=== PATIENT | male | born 1985 | race Caucasian/White ===

== ENCOUNTER 2022-03-11 09:22 | Emergency (ER) | payer MEDICAID, SELFPAY ==
--- NOTE | ~2022-03-11 | US_ITS ---
EXAMINATION: US VENOUS ULTRASOUND WITH DOPPLER LOWER EXTREMITY, BILATERAL CLINICAL INFORMATION: Bilateral leg pain and swelling. COMPARISON: None TECHNIQUE: Ultrasound of the deep veins is performed from the hip to the calf with compression sonography and color and pulse Doppler assessment. Spectral analysis with color-flow imaging is performed. FINDINGS: RIGHT: Examination demonstrates lack of compression of the right gastrocnemius vein as well as in the distal aspect of the anterior branch of the posterior tibial vein. There is otherwise normal venous compression and respiratory variation and augmented flow. The visualized common femoral vein, femoral vein, profunda femoral vein, and popliteal vein demonstrate no evidence of deep venous thrombosis. LEFT: Examination demonstrates lack of compression involving the left popliteal vein, posterior tibial veins, and peroneal veins. There is otherwise normal venous compression and respiratory variation and augmented flow. The visualized common femoral vein, femoral vein, and profunda femoral vein demonstrates no evidence of deep venous thrombosis. No Brock's cyst cyst is seen on either side. Bilateral inguinal lymph nodes are incidentally visualized, which appeared within normal limits by size criteria and demonstrate normal fatty steve. US/US venous duplex LE BI IMPRESSION: Deep venous thrombosis involving the left popliteal vein and extending to infrapopliteal veins, as above. Deep venous thrombosis involving right infrapopliteal veins, as above. Dr. Calderon was directly informed of the findings by telephone at approximately 12:50 PM on March 11, 2022.
--- NOTE | ~2022-03-11 | XR_ITS ---
EXAMINATION: XR CHEST CLINICAL INFORMATION: Pedal edema COMPARISON: Chest radiographs 05/13/2017 TECHNIQUE: 2 views of the chest were obtained. FINDINGS: The lungs are clear. The vascularity is normal. Heart size normal. The costophrenic sulci are well-defined. The hilar and mediastinal contours and bony structures are unremarkable. XR/XR chest 2V IMPRESSION: Unremarkable examination.
[2022-03-11 09:27] VITALS: BP 155/79; PULSE 79; RESP 18; TEMP 36.7; O2SAT 98; BMI 42.5
[2022-03-11 11:05] LABS: Prothrombin Time 11.5 SEC (10.0-13.1)
[2022-03-11 11:54] LABS: Appearance Urine Clear; Color Urine Yellow; Glucose Urine UA Negative (Negative); Leukocyte Esterase Urine Negative (Negative); Nitrite Urine Negative (Negative); PH 7.5 (5.0-9.0); Specific Gravity - Urine 1.015 (1.005-1.025); Urine Blood Negative (Negative); Urine Ketones Negative (Negative); Urine Protein Negative (Neg-Trace)
[2022-03-11 12:18] LABS: Basophils Percent Auto 0.4 % (0-2); Eosinophils Absolute Auto 0.2 X10*3/uL (0.0-0.4); Eosinophils Percent Auto 2.6 % (0-4); Hematocrit 38.9 % (42.0-52.0); Hemoglobin 12.9 g/dl (14.0-18.0); Imm Gran Abs Auto 0.02 X10*3/uL (0.00-0.03); Imm Gran Pct Auto 0.3 % (0.0-0.4); Lymphocytes Absolute Auto 2.2 X10*3/uL (1.2-4.9); Lymphocytes Percent Auto 30.2 % (20-40); Mean Corpuscular HGB Conc 33.2 g/dl (31.0-36.0); Mean Corpuscular Hemoglobin 27.7 pg (27.0-33.0); Mean Corpuscular Volume 83.5 fL (80.0-98.0); Mean Platelet Volume 8.8 fL (9.4-12.4); Monocytes Absolute Auto 0.6 X10*3/uL (0.1-1.2); Neutrophils Absolute Auto 4.3 x10*3/uL (2.0-8.3); Neutrophils Percent Auto 58.5 % (45-73); Platelet Count 164 X10*3/uL (160-400); Red Blood Count 4.66 X10*6/uL (4.60-5.80); Red Cell Distribution Width 13.4 % (11.0-16.0); White Blood Count 7.4 X10*3/uL (4.8-10.8)
[2022-03-11 12:27] LABS: MANUAL DIFF FLAG NO
[2022-03-11 12:35] LABS: Alanine Aminotransferase 36 U/L (0-40); Albumin Level 3.7 g/dL (3.5-5.0); Alkaline Phosphatase 76 U/L (39-117); Anion Gap 15 (12-20); Aspartate Amino Transferase 30 U/L (5-37); Bilirubin Direct 0.2 mg/dL (0.0-0.5); Bilirubin Total 0.5 mg/dL (0.0-1.0); Blood Urea Nitrogen 14 mg/dL (9-16); Calcium 8.8 mg/dL (8.4-10.2); Carbon Dioxide 24 mmol/L (22-29); Chloride 106 mmol/L (96-108); Creatinine Clr Calc Pharmacy 163.7; Estimated Glomerular Filt Rate > 60; Glucose Random 117 mg/dL (60-115); Potassium 4.1 mmol/L (3.3-5.1); Sodium 141 mmol/L (135-145); Total Protein 7.5 g/dL (6.5-8.0)
[2022-03-11 12:40] LABS: B Type Natriuretic Peptide 58 pg/mL (<100)
[2022-03-11 12:45] LABS: Partial Thromboplastin Time 33.5 SEC (26.0-36.4)
[2022-03-11 12:56] LABS: TSH reflex Free T4 0.92 uIU/mL (0.32-4.0)
[2022-03-11] MEDS: Apixaban 5 MG TABLET PO ×2 (13:13)
--- NOTE | 2022-03-11 16:11 | ED.GENADULT ---
HPI - General Adult General Chief complaint: Extremity Problem Stated complaint: Leg pain/swollen Time Seen by Provider: 03/11/22 10:00 History of Present Illness HPI narrative: Patient complains of bilateral leg swelling worse on the left over the last couple of weeks, no shortness of breath no injuries no fevers no redness, no joint swelling or joint pains, no rashes Related Data Previous Rx's Medication Instructions Recorded apixaban 5 mg (74 tabs) tablets in 5 mg PO BID #74 ea 03/11/22 a dose pack (Eliquis DVT-PE Treat 30D Start) Allergies Allergy/AdvReac Type Severity Reaction Status Date / Time sulfamethoxazole Allergy Intermediate HIVES Unverified 03/26/20 18:02 [From BACTRIM] trimethoprim [From BACTRIM] Allergy Intermediate HIVES Unverified 03/26/20 18:02 Review of Systems Review of Systems: Positive for bilateral leg swelling Negatives are no fever no chills no dizziness or weakness no fainting no feeling faint no headache neck pain no chest pain or shortness of breath no palpitations no exertional symptoms no abdominal pain no nausea or vomiting no skin rash no joint swelling Yes all other systems are reviewed and are negative PMFSH Past Medical History Source: nursing notes reviewed Social History Social History Advance Directives: No Physical Exam ED Vital Signs: Vital Signs - 24 hr 03/11/22 09:27 Temperature 98.0 F Pulse Rate 79 Respiratory Rate 18 Blood Pressure 155/79 H Pulse Oximetry 98 Oxygen Delivery Method Room Air BMI result Body Mass Index 42.5 General appearance no acute distress Head is normocephalic atraumatic Neck is supple Chest is clear to auscultation bilateral, no pleuritic discomfort Breath sounds are clear equal and normal The heart no murmur Abdomen soft nontender Extremities full range of motion x4 The leg exam both legs are mildly swollen left more than right, there is 1+ edema in both legs, there is no redness no warmth no wounds no rashes and neurovascular intact distal Skin no rash Neuro no focal deficits Course Course Course Narrative: Patient had ultrasound done of both legs which showed DVT involving left popliteal vein into in for a popliteal veins, it also showed DVT involving right infrapopliteal veins, so bilateral DVT Lab work did show low end of normal for his platelets but they were still within normal range, so Eliquis was started I texted Dr. Tompkins of Hematology who agreed by tech that she would see this patient and he should call the office The patient was discharged after 1st dose of Eliquis, he is given the coupon and a prescription and he will follow with Dr. Tompkins Medical Decision Making Lab Data Lab results reviewed: Yes I reviewed the patient's lab results. Result diagrams: 03/11/22 12:09 03/11/22 12:09 Labs: Lab Results 03/11/22 03/11/22 03/11/22 Range/Units 10:55 11:45 12:09 WBC 7.4 (4.8-10.8) X10*3/uL RBC 4.66 (4.60-5.80) X10*6/uL Hgb 12.9 L (14.0-18.0) g/dl Hct 38.9 L (42.0-52.0) % MCV 83.5 (80.0-98.0) fL MCH 27.7 (27.0-33.0) pg MCHC 33.2 (31.0-36.0) g/dl RDW 13.4 (11.0-16.0) % Plt Count 164 (160-400) X10*3/uL MPV 8.8 L (9.4-12.4) fL Immature Gran % (Auto) 0.3 (0.0-0.4) % Neut % (Auto) 58.5 (45-73) % Lymph % (Auto) 30.2 (20-40) % [place] % (Auto) 8.0 (2-11) % Eos % (Auto) 2.6 (0-4) % Baso % (Auto) 0.4 (0-2) % Lymph # (Auto) 2.2 (1.2-4.9) X10*3/uL [place] # (Auto) 0.6 (0.1-1.2) X10*3/uL Eos # (Auto) 0.2 (0.0-0.4) X10*3/uL Baso # (Auto) 0.0 (0.0-0.2) X10*3/uL Abs Immat Gran (auto) 0.02 (0.00-0.03) X10*3/uL Absolute Neuts (auto) 4.3 (2.0-8.3) x10*3/uL Absolute Nucleated RBC 0.000 (0.0-0.012) X10*3/uL Nucleated RBC % (auto) 0.0 (0.0-0.2) /100WBC PT 11.5 (10.0-13.1) SEC INR 1.0 (0.9-1.1) APTT 33.5 (26.0-36.4) SEC Sodium (135-145) mmol/L Potassium (3.3-5.1) mmol/L Chloride (96-108) mmol/L Carbon Dioxide (22-29) mmol/L Anion Gap (12-20) BUN (9-16) mg/dL Creatinine (0.5-1.4) mg/dL Estim Creat Clear Calc Estimated GFR Random Glucose (60-115) mg/dL Calcium (8.4-10.2) mg/dL Total Bilirubin (0.0-1.0) mg/dL Direct Bilirubin (0.0-0.5) mg/dL AST (5-37) U/L ALT (0-40) U/L Alkaline Phosphatase (39-117) U/L B-Natriuretic Peptide (<100) pg/mL Total Protein (6.5-8.0) g/dL Albumin (3.5-5.0) g/dL TSH (0.32-4.0) uIU/mL Urine Color Yellow Urine Appearance Clear Urine pH 7.5 (5.0-9.0) Ur Specific [place] 1.015 (1.005-1.025) Urine Protein Negative (Neg-Trace) mg/dL Urine Glucose (UA) Negative (Negative) mg/dL Urine Ketones Negative (Negative) mg/dL Urine Blood Negative (Negative) Urine Nitrite Negative (Negative) Ur Leukocyte Esterase Negative (Negative) 03/11/22 03/11/22 Range/Units 12:09 12:09 WBC (4.8-10.8) X10*3/uL RBC (4.60-5.80) X10*6/uL Hgb (14.0-18.0) g/dl Hct (42.0-52.0) % MCV (80.0-98.0) fL MCH (27.0-33.0) pg MCHC (31.0-36.0) g/dl RDW (11.0-16.0) % Plt Count (160-400) X10*3/uL MPV (9.4-12.4) fL Immature Gran % (Auto) (0.0-0.4) % Neut % (Auto) (45-73) % Lymph % (Auto) (20-40) % [place] % (Auto) (2-11) % Eos % (Auto) (0-4) % Baso % (Auto) (0-2) % Lymph # (Auto) (1.2-4.9) X10*3/uL [place] # (Auto) (0.1-1.2) X10*3/uL Eos # (Auto) (0.0-0.4) X10*3/uL Baso # (Auto) (0.0-0.2) X10*3/uL Abs Immat Gran (auto) (0.00-0.03) X10*3/uL Absolute Neuts (auto) (2.0-8.3) x10*3/uL Absolute Nucleated RBC (0.0-0.012) X10*3/uL Nucleated RBC % (auto) (0.0-0.2) /100WBC PT (10.0-13.1) SEC INR (0.9-1.1) APTT (26.0-36.4) SEC Sodium 141 (135-145) mmol/L Potassium 4.1 (3.3-5.1) mmol/L Chloride 106 (96-108) mmol/L Carbon Dioxide 24 (22-29) mmol/L Anion Gap 15 (12-20) BUN 14 (9-16) mg/dL Creatinine 0.81 (0.5-1.4) mg/dL Estim Creat Clear Calc 163.7 Estimated GFR > 60 Random Glucose 117 H (60-115) mg/dL Calcium 8.8 (8.4-10.2) mg/dL Total Bilirubin 0.5 (0.0-1.0) mg/dL Direct Bilirubin 0.2 (0.0-0.5) mg/dL AST 30 (5-37) U/L ALT 36 (0-40) U/L Alkaline Phosphatase 76 (39-117) U/L B-Natriuretic Peptide 58 (<100) pg/mL Total Protein 7.5 (6.5-8.0) g/dL Albumin 3.7 (3.5-5.0) g/dL TSH 0.92 (0.32-4.0) uIU/mL Urine Color Urine Appearance Urine pH (5.0-9.0) Ur Specific [place] (1.005-1.025) Urine Protein (Neg-Trace) mg/dL Urine Glucose (UA) (Negative) mg/dL Urine Ketones (Negative) mg/dL Urine Blood (Negative) Urine Nitrite (Negative) Ur Leukocyte Esterase (Negative) Discharge Plan Discharge Clinical Impression: Deep vein thrombosis of lower extremity Patient Disposition: Home, Self-Care Additional Instructions: Our workup today showed deep vein clot in the left leg, as well as other clots in both lower legs You will need to take a blood thinner to prevent the clots from going to her lungs or getting worse If you develop any chest pain or difficulty breathing or pain with a deep breath return to the ER to be checked for clots that go to lungs When you follow-up with your doctor next week make sure you let them know you are taking Eliquis for blood clots, bring the papers I gave you Your platelets are normal but at the low end of normal, so your doctor may want a recheck that as you need platelets for your blood clot Return to the ER any time any worse condition or any concerns Prescriptions: New Eliquis DVT-PE Treat 30D Start 5 mg (74 tabs) tablets,dose pack 5 mg PO BID Qty: 74 0RF Rx Instructions: Take 2 tablets twice a day, 10 mg twice a day for 1st 7 days, then after 7 days take 1 tablet twice a day morning and night, 5 mg 1 tablet twice a day Referrals: Shima Tompkins MD [Physician] - (New finding of a bilateral lower leg clots and left-sided DVT) Stand Alone Forms: Work/School Release Interventions: ED Discharge Assessment Last Done: 03/11/22 13:21 Discharge Date/Time: 03/11/22 13:22
== END 2022-03-11 13:22 | disposition home or self-care (01) ==
PROVIDERS: Physician Assistant Medical; Emergency Provider Emergency Medicine; PCP Nurse Practitioner Family
DX: I82.432 Acute embolism and thrombosis of left popliteal vein (principal); M79.662 Pain in left lower leg; R60.0 Localized edema; R06.02 Shortness of breath; Z79.899 Other long term (current) drug therapy
CPT/HCPCS: 36415; 71046; 80048; 80076; 81003; 83880; 84443; 85025; 85610; 85730; 93970; 99283; 99284

== ENCOUNTER → 2022-05-17 13:49 | Outpatient (BNV) | payer MEDICAID, SELFPAY | PROVIDERS: Visit Provider Internal Medicine | DX: I82.403 Acute embolism and thrombosis of unspecified deep veins of lower extremity, bilateral (principal) | CPT/HCPCS: 99204; 99213 ==

== ENCOUNTER 2022-06-08 08:29 | Outpatient (REF) | payer MEDICAID, SELFPAY ==
--- NOTE | ~2022-06-08 | US_ITS ---
EXAMINATION: US VENOUS ULTRASOUND WITH DOPPLER LOWER EXTREMITY, BILATERAL CLINICAL INFORMATION: Follow-up DVT COMPARISON: Previous exam March 2022 TECHNIQUE: Ultrasound of the deep veins is performed from the hip to the calf with compression sonography and color and pulse Doppler assessment. Spectral analysis with color-flow imaging is performed. FINDINGS: RIGHT: There is normal venous compression and respiratory variation and augmented flow. The visualized common femoral vein, superficial femoral vein, profunda femoral vein, popliteal vein, and the trifurcation region are patent. There is old-appearing thrombus seen in the right gastrocnemius vein in the proximal calf with hypoechoic and hyperechoic hyperechoic material against the wall. There is improved flow in the right gastrocnemius vein compared to March 2022. There is no significant popliteal fossa cyst. LEFT: There is normal venous compression and respiratory variation and augmented flow. The visualized common femoral vein, superficial femoral vein, profunda femoral vein, popliteal vein, and the trifurcation region shows no evidence of deep venous thrombosis. The left popliteal posterior tibial and peroneal veins demonstrate normal compression and flow. There is no significant popliteal fossa cyst. US/US venous duplex LE BI IMPRESSION: Right: No acute DVT. Old-appearing thrombus in the right gastrocnemius vein which appears improved or decreased compared to 03/11/2022 exam. Left: No evidence of DVT.
== END 2022-06-08 08:30 | disposition home or self-care (01) ==
LOC: HO.HMGCX 08:29
PROVIDERS: PCP Nurse Practitioner Family; Visit Provider Internal Medicine
DX: I82.409 Acute embolism and thrombosis of unspecified deep veins of unspecified lower extremity (principal)
CPT/HCPCS: 93970

== ENCOUNTER → 2023-03-08 12:55 | Outpatient (BNVA) | payer MEDICAID, SELFPAY | PROVIDERS: PCP Nurse Practitioner Family; Visit Provider Physician Assistant ==

== ENCOUNTER 2023-03-22 08:21 | Outpatient (AMB) | payer MEDICAID, SELFPAY ==
--- NOTE | 2023-03-22 12:51 | A.OFFVIS_ITS ---
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 Allergies sulfamethoxazole [From BACTRIM] Allergy (Intermediate, Verified 03/22/23 12:54) HIVES trimethoprim [From BACTRIM] Allergy (Intermediate, Verified 03/22/23 12:54) HIVES Medication List - Last Reconciled 03/22/23 by Mc Nieto MD apixaban (Eliquis) 5 mg PO BID methadone 110 mg PO DAILY HPI [employer] SWL BMI 40.3 HPI Details Start time: 12.48pm, End time: 1.36pm ?I spent 43 minutes speaking with the patient on the phone plus an additional 5 minutes reviewing and updating records for a total of 48 minutes HPI Comments History of Present Illness Details Previous weight loss efforts: Weight Watchers Wakes up: 7am, sleeps: 9pm Breakfast: 8am premade Equate protein shake, or eggs Lunch: 1pm (ham and cheese wrap and fruits) Dinner: 6pm (steak or chicken with broccoli) Snacks: 3pm (rice cakes), wakes up at 11pm-12am (cereal or milk) Exercise: has a Gym membership, could get a treadmill Fluids: Coffee: none, tea: none, soda: diet Pepsi, juice: crystal lights, ETOH: none PFSH Medical History (Updated 03/22/23 @ 13:00 by Mc Nieto MD) Anxiety Depression History of opioid abuse Morbid obesity History of DVT (deep vein thrombosis) Family History Maternal Grandfather Myocardial infarction Family/Other Leukemia Social History (Updated 03/20/23 @ 14:39 by Gisela Martinez) Household Members: Spouse and Children Housing: Condominium Are you a primary home health care case manager to a significant other at home: No Do you presently have visiting nurse or other home services: No Patient Tobacco Use Status: Current everyday Tobacco user Tobacco use type: Cigarette Cigarette Packs Per Day: 1 e-Cigarette/Vaping Use: Never Used Substance Use Type: Marijuana service: No Current occupational status: employed Assessment & Plan Assessment & Plan (1) Morbid obesity: Code(s): E66.01 - Morbid (severe) obesity due to excess calories Plan: 1.? Plan for lap sleeve gastrectomy. If diaphragmatic or ventral hernias are present at time of surgery, these will be repaired laparoscopically as well. Risks and complications were discussed in detail including possible conversion to an open procedure, anastomotic leak, bleeding requiring transfusion, small bowel obstruction, , DVT and pulmonary embolism, cardiac, or pulmonary complications, as intermediate accountant complications such as anastomotic ulcer, insufficient weight loss and vitamin deficiencies. I emphasized the importance of close follow-up, adherence to instructions and good communication. 2. Nutritional counseling. Start with 2 Celebrate REBUILD protein (buy at the hospital's gift shop, or online) shakes (ONE scoop each in 8oz almond milk) at 8am-10am and 11am-1pm, 1 Celebrate protein bar (buy at the [facility], or online) at 2pm-4pm, dinner at 5pm (10 forks of protein and 10 forks of salad/vegetables) AND ONE more protein bar after dinner at 7pm-9pm. If you wake up in the middle of the night and you feel hungry, please do another protein bar. Meal to include lean meat (beef, fish, pork, turkey, chicken), or romanian yogurt, or egg whites, or beans with a salad with olive oil and fruits (berries, pears, apples, kiwi). Avoid salt, breads, potatoes, rice, pasta, desserts. 3. Each shake would be drunk slowly, like coffee in a period of 2 hours. 4. Cut each bar in 4 pieces and eat each piece in 30min ?to make each bar last 2 hours. 5. I emphasized the importance of measuring accurately the food portion and measure it when serving the food in plate 6. The meal portions include 10 full-size forks of meat and 10 full-size forks of salad. You always eat the meat portion but you can replace up to 5 forks for salad/vegetables with rice, potatoes or pasta, or a fruit ?if you like. The less you do it the better weight loss will be. 7. One full-size fork is what it can be scooped on the fork without falling aside and not what can be bit with the fork. Use regular forks like those you find in a typical restaurant. 8.? Please send me weight measurements as soon as possible and then once a week. Always include your diet and exercise plan. 9. Start treadmill with an incline of 2.0 and speed of 3.0. Increase incline by 1 every 3 min to a max incline of 8.0, stay 3min at 8.0 and then return to 2.0 and repeat same steps until calorie goal is met. Goal is to burn 2000 calories per week on exercise, which means either 300 calories daily, or 400 calories 5 days per week, or 500 calories 4 days per week, or 650 calories 3 days per week. 10.?Goal is to lose at least 1.5-2lbs per week 11. Goal to lose 10% of your weight before surgery, which is about 26lbs. Ultimate weight goal: 238lbs before surgery 12. Please follow the diet plan exactly without any change. If you don't like something about the plan or you feel hungry you need to communicate with me so I can help you revise the plan. You should not change the plan yourself. (2) DVT (deep venous thrombosis): Code(s): I82.409 - Acute embolism and thrombosis of unspecified deep veins of unspecified lower extremity Orders: Orders Insulin Today E66.01 - Morbid (severe) obesity due to excess calories, I82.409 - Acute embolism and thrombosis of unspecified deep veins of unspecified lower extremity IRON PROFILE Today E66.01 - Morbid (severe) obesity due to excess calories, I82.409 - Acute embolism and thrombosis of unspecified deep veins of unspecified lower extremity Vitamin B12 and Folate Today E66.01 - Morbid (severe) obesity due to excess calories, I82.409 - Acute embolism and thrombosis of unspecified deep veins of unspecified lower extremity Zinc Today E66.01 - Morbid (severe) obesity due to excess calories, I82.409 - Acute embolism and thrombosis of unspecified deep veins of unspecified lower extremity Comprehensive Met. Panel Today E66.01 - Morbid (severe) obesity due to excess calories, I82.409 - Acute embolism and thrombosis of unspecified deep veins of unspecified lower extremity Vitamin B1 Today E66.01 - Morbid (severe) obesity due to excess calories, I82.409 - Acute embolism and thrombosis of unspecified deep veins of unspecified lower extremity Vitamin A Today E66.01 - Morbid (severe) obesity due to excess calories, I82.409 - Acute embolism and thrombosis of unspecified deep veins of unspecified lower extremity Ferritin Today E66.01 - Morbid (severe) obesity due to excess calories, I82.409 - Acute embolism and thrombosis of unspecified deep veins of unspecified lower extremity PTHI Today E66.01 - Morbid (severe) obesity due to excess calories, I82.409 - Acute embolism and thrombosis of unspecified deep veins of unspecified lower extremity H Pylori Breath Test Today E66.01 - Morbid (severe) obesity due to excess calories, I82.409 - Acute embolism and thrombosis of unspecified deep veins of unspecified lower extremity Vitamin D 25-OH Total Today E66.01 - Morbid (severe) obesity due to excess calories, I82.409 - Acute embolism and thrombosis of unspecified deep veins of unspecified lower extremity Hemoglobin A1c Today E66.01 - Morbid (severe) obesity due to excess calories, I82.409 - Acute embolism and thrombosis of unspecified deep veins of unspecified lower extremity ECG 12 lead EKG Today E66.01 - Morbid (severe) obesity due to excess calories, I82.409 - Acute embolism and thrombosis of unspecified deep veins of unspecified lower extremity Lipid Panel Today E66.01 - Morbid (severe) obesity due to excess calories, I82.409 - Acute embolism and thrombosis of unspecified deep veins of unspecified lower extremity Complete Blood Count Auto Diff Today E66.01 - Morbid (severe) obesity due to excess calories, I82.409 - Acute embolism and thrombosis of unspecified deep veins of unspecified lower extremity C Reactive Protein Today E66.01 - Morbid (severe) obesity due to excess calories, I82.409 - Acute embolism and thrombosis of unspecified deep veins of unspecified lower extremity TSH reflex Free T4 Today E66.01 - Morbid (severe) obesity due to excess calories, I82.409 - Acute embolism and thrombosis of unspecified deep veins of unspecified lower extremity US abdomen comp w elastography Today E66.01 - Morbid (severe) obesity due to excess calories, I82.409 - Acute embolism and thrombosis of unspecified deep veins of unspecified lower extremity XR chest 2V Today E66.01 - Morbid (severe) obesity due to excess calories, I82.409 - Acute embolism and thrombosis of unspecified deep veins of unspecified lower extremity FL upper GI w air Today E66.01 - Morbid (severe) obesity due to excess calories, I82.409 - Acute embolism and thrombosis of unspecified deep veins of unspecified lower extremity Referrals Behavioral Health Referral E66.01 - Morbid (severe) obesity due to excess calories, I82.409 - Acute embolism and thrombosis of unspecified deep veins of unspecified lower extremity Nutrition/Dietitian Referral E66.01 - Morbid (severe) obesity due to excess calories, I82.409 - Acute embolism and thrombosis of unspecified deep veins of unspecified lower extremity Telehealth Telehealth Location of provider rendering services: practice address Location of patient: address on file Patient Identification confirmed using: Name, : Yes Telehealth method: voice only Patient verbally consented to treatment: Yes Patient verbally consented to billing insurance company: Yes Patient informed of any privacy concerns related to visit: Yes Minutes spent on Phone/Video with Pt.: 48 Coding Level of Care Code Tele [facility] Pt Level 4 (31074) Diagnoses Morbid obesity E66.01 DVT (deep venous thrombosis) I82.409 Time Spent (min) 48
[2023-03-22 13:11] VITALS: BMI 40.2
== END 2023-03-22 13:40 | disposition home or self-care (01) ==
LOC: HO.HBS 08:22
PROVIDERS: PCP Nurse Practitioner Family; Visit Provider Surgery
DX: E66.01 Morbid (severe) obesity due to excess calories (principal); Z68.41 Body mass index [BMI] 40.0-44.9, adult
CPT/HCPCS: 99204

== ENCOUNTER → 2023-03-22 08:21 | Outpatient (BNVA) | payer MEDICAID, SELFPAY | PROVIDERS: PCP Nurse Practitioner Family; Visit Provider Surgery ==

== ENCOUNTER 2023-04-05 09:40 | Outpatient (REF) | payer MEDICAID, SELFPAY ==
--- NOTE | ~2023-04-05 | XR_ITS ---
EXAMINATION: XR CHEST CLINICAL INFORMATION: Morbid obesity COMPARISON: 03/11/2022 TECHNIQUE: 2 views of the chest were obtained. FINDINGS: No significant abnormality is noted involving the heart, lungs, mediastinum, bony thorax or soft tissues. XR/XR chest 2V IMPRESSION: Unremarkable examination, without interval change.
--- NOTE | 2023-04-05 09:46 | ECG_ITS ---
Test Reason : morbid obesity Blood Pressure : / mmHG Vent. Rate : 080 BPM Atrial Rate : 080 BPM P-R Int : 180 ms QRS Dur : 094 ms QT Int : 378 ms P-R-T Axes : 023 001 000 degrees QTc Int : 435 ms Normal sinus rhythm Possible Inferior infarct , age undetermined Abnormal ECG When compared with ECG of 02-DEC-2014 15:56, No significant change was found Referred By: Mc Nieto Electronically Signed By:ADI MCKAY
[2023-04-05 10:11] LABS: MANUAL DIFF FLAG NO
[2023-04-05 10:18] LABS: Basophils Percent Auto 0.3 % (0-2); Eosinophils Absolute Auto 0.1 X10*3/uL (0.0-0.4); Hematocrit 43.6 % (42.0-52.0); Hemoglobin 14.4 g/dl (14.0-18.0); Imm Gran Abs Auto 0.01 X10*3/uL (0.00-0.03); Imm Gran Pct Auto 0.1 % (0.0-0.4); Lymphocytes Absolute Auto 1.8 X10*3/uL (1.2-4.9); Lymphocytes Percent Auto 25.7 % (20-40); Mean Corpuscular Hemoglobin 27.7 pg (27.0-33.0); Mean Corpuscular Volume 83.8 fL (80.0-98.0); Mean Platelet Volume 8.9 fL (9.4-12.4); Monocytes Absolute Auto 0.5 X10*3/uL (0.1-1.2); Monocytes Percent Auto 6.6 % (2-11); Neutrophils Absolute Auto 4.7 x10*3/uL (2.0-8.3); Neutrophils Percent Auto 66.3 % (45-73); Platelet Count 238 X10*3/uL (160-400); Red Cell Distribution Width 13.2 % (11.0-16.0); White Blood Count 7.1 X10*3/uL (4.8-10.8)
[2023-04-05 10:54] LABS: Alanine Aminotransferase 36 U/L (0-40); Albumin Level 4.3 g/dL (3.5-5.0); Alkaline Phosphatase 70 U/L (39-117); Anion Gap 12 (12-20); Aspartate Amino Transferase 32 U/L (5-37); Bilirubin Total 0.6 mg/dL (0.0-1.0); Blood Urea Nitrogen 20 mg/dL (9-16); C Reactive Protein 1.45 mg/dL (< or = 0.50); Calcium 9.7 mg/dL (8.4-10.2); Carbon Dioxide 26 mmol/L (22-29); Chloride 105 mmol/L (96-108); Cholesterol 156 mg/dL (<200); Estimated Glomerular Filt Rate > 60; Glucose Random 100 mg/dL (60-115); HDL Cholesterol 25 mg/dL (>40); Iron 65 mcg/dL (45-160); LDL Cholesterol Calculated 105 mg/dL (<100); Percent Iron Saturation 20 % (15-50); Potassium 4.2 mmol/L (3.3-5.1); Sodium 139 mmol/L (135-145); Total Iron Binding Capacity 326 mcg/dL (228-428); Total Protein 8.5 g/dL (6.5-8.0); Triglycerides 133 mg/dL (<150); Unsaturated Iron Binding 261 ug/dL
[2023-04-05 11:16] LABS: Ferritin 104 ng/mL (20-250); Insulin 11 uU/mL (2-29); TSH reflex Free T4 0.61 uIU/mL (0.32-4.0); Vitamin D 25-OH Total 39.4 ng/mL (>30)
[2023-04-05 11:20] LABS: Vitamin B12 988 pg/mL (200-900)
[2023-04-05 11:59] LABS: Estimated Average Glucose 111 mg/dL; Hemoglobin A1c % 5.5 % (<6.0)
[2023-04-06 16:19] LABS: Calcium (PTHI) 9.5 mg/dL (8.6-10.3); PTHI 28 pg/mL (16-77)
[2023-04-08 22:44] LABS: Zinc 88 mcg/dL (60-130)
[2023-04-09 14:57] LABS: Vitamin B1 28 nmol/L (8-30)
[2023-04-11 04:58] LABS: Vitamin A 37 mcg/dL (38-98)
== END 2023-04-05 09:41 | disposition home or self-care (01) ==
LOC: HO.XRAY 09:40
PROVIDERS: Visit Provider Surgery
DX: E66.01 Morbid (severe) obesity due to excess calories (principal); I82.409 Acute embolism and thrombosis of unspecified deep veins of unspecified lower extremity
CPT/HCPCS: 36415; 71046; 80053; 80061; 82306; 82607; 82728; 82746; 83036; 83525; 83540; 83970; 84425; 84443; 84590; 84630; 85025; 86140; 93005

== ENCOUNTER 2023-04-06 14:09 | Outpatient (AMB) | payer MEDICAID, SELFPAY ==
--- NOTE | 2023-04-06 14:10 | A.OFFWM_ITS ---
Intake Intake Visit Reasons: VIDEO Intake Allergies sulfamethoxazole [From BACTRIM] Allergy (Intermediate, Verified 03/22/23 12:54) HIVES trimethoprim [From BACTRIM] Allergy (Intermediate, Verified 03/22/23 12:54) HIVES [facility] Medical History (Updated 04/06/23 @ 12:57 by Mc Nieto MD) Anxiety Depression History of opioid abuse Morbid obesity History of DVT (deep vein thrombosis) Family History Maternal Grandfather Myocardial infarction Family/Other Leukemia Social History (Updated 03/20/23 @ 14:39 by Gisela Martinez) Household Members: Spouse and Children Housing: Condominium Are you a primary critical care specialist to a significant other at home: No Do you presently have visiting nurse or other home services: No Patient Tobacco Use Status: Current everyday Tobacco user Tobacco use type: Cigarette Cigarette Packs Per Day: 1 e-Cigarette/Vaping Use: Never Used Substance Use Type: Marijuana service: No Current occupational status: employed Behavioral Health Assessment Weight Management Therapy Therapy Notes Details Pt is a 37 dee old male who presents for BH assessment as part of SWL program. Pt is interested in bariatric surgery with the goal to reach his healthy weight and have a healthier life style. Pt disclosed history of Bipolar Dx (mostly depressive episodes), anxiety, substance use in the past and trauma. He has been in recovery 4 years ago and currently receives methadone treatment, also will start seeing a therapist soon at his PCP's office. Pt disclosed past hospitalization in 2012 due to severe depression but denies ever had suicidal ideation/plan/attempts and/or self/other-harm concerns. Some signs of emotional eating were identified ad BES scores suggest moderate risk for binge eating behavior. We will meet again in 4 weeks to finish assessment, monitor BH functioning and adjustment to program. Presenting Concerns Referral Source P Provider. Pt sees Dr Kerr Reason for referral Completion of behavioral health assessment as part of process for weight-loss surgery. Precipitating Event Morbid obesity. Living Situation Current Living Situation Rent At risk of losing current housing? No Satisfied with current living situation? Yes Comments Pt lives with his fiance. Food/Weight/Diet Expectations of change Goal to lose 10% of his weight before surgery, which is about 26lbs. Ultimate weight goal: 238lbs before surgery. Pt wants to be at a healthy weight and is unsure about a number. History/Relationship with food Sometimes will reward himself with food. . Example of meals before starting the program Breakfast: Skip most of the time Lunch: @2pm a sandwich or cereal/milk. Dinner: @6-8pm Big meal. (Steak/pork/chicken, bake potatoes, corn/carrots, pasta, salads) Usually big portions and multiple carbs per meal. Icecream at 11pm. Pm Eating: @12/1am cereal/milk, PBG sandwich and milk. History/Relationship with weight Normal weight until about age 12. HAs been overweight since hitting [employer]. in past 10 years Lowest weight was 189Lbs, and highest 296Lbs. History/Relationship with dieting Weight watchers, protein shakes, keto (for 1 week only). Exercise routine. Binge Eating Do you frequently eat large amounts of food in short periods of time, not feeling physically hungry? Yes Do you feel out of control when you eat a large amount of food in a short period of time? Yes Do you eat large amounts of food rapidly and typically alone? Yes Night Eating Do you wake up at least once during the night to eat? Yes If you wake up in the night, do you find that it is necessary to eat something in order to fall back asleep? No Do you have little or no appetite in the morning and feel very hungry in the evening, often overeating between dinner and when you go to bed? Yes Social History Family history and relationship PT is engaged for over a year. Has a sister, they recently reconnected. Mother alive, step dad passed. No relationship with bio-father. 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 Developmental history and status None reported. Social support Fianc? who had bariatric surgery, mother, friend. 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 Religious/Spirituality [employer]. Cultural/Ethnic information Mixed /. Legal Involvement and History Current or historical involvement with the legal system? 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 No Financial Situation Describe current financial situation Comfortable Financial assistance? Food [employer]? No Mental Health and Addiction Treatment Current/Past substance abuse? Yes Comments Hx of Opioids/Heroine use, has been in recovery for 4 years. Current/Past addictive behavior concerns? No Psychiatric history -Was in therapy for several years at [facility] . -Will be starting therapy soon at his PC P office. - Diagnosed with Bipolar disorder (has h ad depressive episodes and per is statements possible manic ones) and anxiety - Was hospitalized in 2013 due to severe depression. - Denies ever had suicidal ideation/plan /attempts, also denies self/other-harm. Medical and Physical Health Summary Additional Medical History not covered in history None Sexual History concerns None Physical exam in the last year? Yes Pain Screening Current pain? No Pain in the last few months? Yes Comments Knee pain. Medications Is the patient compliant with medications? Yes Does the patient have [place] Guardian in place? Not applicable Does the patient use complimentary health approaches? Yes (Started practicing yoga and meditation every morning.) Trauma/Abuse History History of trauma? Yes Questionnaires PHQ-9 Over the last 2 weeks, how often have you been bothered by any of the following problems? 1. Little interest or pleasure in doing things: more than half the days 2. Feeling down, depressed, or hopeless: several days 3. Trouble falling or staying asleep, or sleeping too much: not at all 4. Feeling tired or having little energy: several days 5. Poor appetite or overeating: several days 6. Feeling bad about yourself - or that you are a failure or have let yourself or your family down: several days 7. Trouble concentrating on things, such as reading the newspaper or watching television: not at all 8. Moving or speaking so slowly that other people could have noticed. Or the opposite - being so fidgety or restless that you have been moving around a lot more than usual: several days 9. Thoughts that you would be better off or of hurting yourself in some way: not at all Total score: 7 Depression Screening Interpretation: Negative 17706 - PHQ-9 Billing: Yes Source: Developed by Drs. William Lowe, Pretty Pate, Yonatan Marcial and colleagues, with an educational slim from [employer]. Binge Eating Scale Group 1 A. I don't feel self-conscious about my wt. or body size when I'm with others. B. I feel concerned about how I look to others, but it normally does not make me fell disappointed with myself C. I do get self-conscious about my appearance and wt. which makes me feel disappointed in myself. D. I feel very self-conscious about my wt. and frequently I feel intense shame and disgust for myself. I try to avoid social contacts because of my self- consciousness. Response Group 1: C Group 2 A. I don't have any difficulty eating slowly in the proper manner. B. Although I seem to gobble down foods, I don't end up feeling stuffed because of eating to much. C. At times, I tend to eat quickly and then, I feel uncomfortably full afterwards. D. I have the habit of bolting down my food, without really chewing it. When this happens I usually feel uncomfortably stuffed because I've eaten to much. Response Group 2: C Group 3 A. I feel capable to control my eating urges when I want to. B. I feel like I have failed to control my eating more than the average person. C. I feel utterly helpless when it comes to feeling in control of my eating urges. D. Because I feel so helpless about controlling my eating I have become very desperate about trying to get control. Response Group 3: B Group 4 A. I don't have the habit of eating when I'm bored. B. I sometimes eat when I'm bored, but often I'm able to get busy and get my mind off food. C. I have a regular habit of eating when I'm bored, but occasionally, I can use some other activity to get my mind off eating. D. I have a strong habit of eating when I'm bored. Nothing seems to help me breath the habit. Response Group 4: C Group 5 A. I'm usually physically hungry when I eat something. B. Occasionally, I eat something on impulse even though I really am not hungry. C. I have the regular habit of eating foods, that I might not really enjoy, to satisfy a hungry feeling even though physically, I don't need the food. D. Although I'm not physically hungry, I get a hungry feeling in my mouth that only seems to be satisfied when I eat a food, like sandwich, that fills my mouth. Sometimes, when I eat the food to satisfy my mouth hunger, I then spit the food out so I won't gain weight. Response Group 5: B Group 6 A. I don't feel any guilt or self-hate after I overeat. B. After I overeat, occasionally I feel guilt or self-hate. C. Almost all the time I experience strong guilt or self-hate after I overeat. Response Group 6: B Group 7 A. I don't lose total control of my eating when dieting even after periods when I overeat. B. Sometimes when I eat a forbidden food on a diet, I feel like I blew it and eat even more. C. Frequently, I have the habit of saying to myself, I've blown it now, why not go all the way, when I overeat on a diet. When that happens I eat more. D. I have a regular habit of starting a strict diets for myself but I break the diets by going on an eating binge. My life seems to be either a feast or famine. Response Group 7: B Group 8 A. I rarely eat so much food that I feel uncomfortably stuffed afterwards. B. Usually about once a month, I each such a quantity of food, I end up feeling very stuffed. C. I have regular periods during the month when I eat large amounts of food, either at mealtime or at snacks. D. I eat so much food that I regularly feel quite uncomfortable after eating and sometimes a bit nauseous. Response Group 8: C Group 9 A. My level of calorie intake does not go up very high or go down very low on a regular basis. B. Sometimes after I overeat, I will try to reduce my caloric intake to almost nothing to compensate for the excess calories I've eaten. C. I have a regular habit of overeating during the night. It seems that my routine is not to be hungry in the morning but overeat in the evening. D. In my adult years, I have had week-long periods where I practically starve myself. This follows periods when I overeat. It seems I live a life of either feast or famine. Response Group 9: A Group 10 A. I usually am able to stop eating when I want to. I know when enough is enough. B. Every so often, I experience a compulsion to eat which I can't seem to control. C. Frequently, I experience strong urges to eat which I seem unable to control, but at other times I can control my eating urges. D. I feel incapable of controlling urges to eat. I have a fear of not being able to stop eating voluntarily. Response Group 10: C Group 11 A. I don't have any problem stopping eating when I feel full. B. I usually can stop eating when I feel full but occasionally overeat leaving me feeling uncomfortably stuffed. C. I have a problem stopping eating once I start and usually I feel uncomfortably stuffed after I eat a meal. D. Because I have a problem not being able to stop eating when I want, I sometimes have to induce vomiting to relieve my stuffed feeling. Response Group 11: B Group 12 A. I seem to eat just as much when I'm with others, Family social gatherings as when I'm by myself. B. Sometimes, when I'm with other persons, I don't eat as much as I want to eat because I'm self-conscious about my eating. C. Frequently, I eat only a small amount of food when others are present, because I'm very embarrassed about my eating. D. I feel so ashamed about overeating that I pick times to overeat when I know no one will see me. I feel like a closet eater. Response Group 12: A Group 13 A. I eat three meals a day with only an occasional between meal snack. B. I eat 3 meals a day, but I also normally snack between meals. C. When I am snacking heavily, I get in the habit of skipping regular meals. D. There are regular periods when I seem to be continually eating, with no planned meals. Response Group 13: C Group 14 A. I don't think much about trying to control unwanted eating urges. B. At least some of the time, I feel my thoughts are pre-occupied with trying to control my eating urges. C. I feel that frequently I spend much time thinking about how much I ate or about trying not to eat anymore. D. It seems to me that most of my waking hours are pre-occupied by thoughts about eating or not eating. I feel like I'm constantly struggling not to eat. Response Group 14: B Group 15 A. I don't think about food a great deal. B. I have strong craving for food but they last only for brief periods of time. C. I have days when I can't seem to think about anything else but food. D. Most of my days seem to be pre-occupied with thoughts about food. I feel like I live to eat. Response Group 15: C Group 16 A. I usually know whether or not I'm physically hungry. I take the right portion of food to satisfy me. B. Occasionally, I feel uncertain about knowing whether or not I'm physically hungry. A these times it's hard to know how much food I should take to satisfy me. C. Even though I might know how many calories I should eat, I don't have any idea what is a normal amount of food for me. Response Group 16: C Binge Eating Score: 22 Score less than 17 Minimal Risk Score between 18-26 Moderate Risk Score between 27-46 High Risk Assessment & Plan Assessment & Plan (1) Anxiety: Code(s): F41.9 - Anxiety disorder, unspecified (2) Mood disorder: Code(s): F39 - Unspecified mood [affective] disorder (3) History of substance use disorder: Code(s): Z87.898 - Personal history of other specified conditions Plan Not cleared today. Will f/up in 4 weeks. Next yao: 05/03/2023 @11am - Telehealth Telehealth Telehealth Location of provider rendering services: practice address Location of patient: other ([place], [place]) Patient Identification confirmed using: Name, : Yes Telehealth method: video Patient verbally consented to treatment: Yes Patient verbally consented to billing insurance company: Yes Patient informed of any privacy concerns related to visit: Yes Minutes spent on Phone/Video with Pt.: 60 Coding Level of Care Code New Pt Tele Psy Diag Eval (27214) Patient Type New Diagnoses Anxiety F41.9 Mood disorder F39 History of substance use disorder Z87.898 Time Spent (min) 60
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
== END 2023-04-12 15:29 | disposition home or self-care (01) ==
LOC: HO.HBST 14:09
PROVIDERS: PCP Nurse Practitioner Family; Visit Provider Counselor Mental Health
DX: F41.9 Anxiety disorder, unspecified (principal); F39 Unspecified mood [affective] disorder; Z87.898 Personal history of other specified conditions
CPT/HCPCS: 90791

== ENCOUNTER → 2023-04-06 14:09 | Outpatient (BNVA) | payer MEDICAID, SELFPAY | PROVIDERS: PCP Nurse Practitioner Family; Visit Provider Counselor Mental Health | DX: F41.9 Anxiety disorder, unspecified (principal); F39 Unspecified mood [affective] disorder; Z87.898 Personal history of other specified conditions | CPT/HCPCS: 90791 ==

== ENCOUNTER → 2023-04-12 13:11 | Outpatient (BNVA) | payer MEDICAID, SELFPAY | PROVIDERS: PCP Nurse Practitioner Family; Visit Provider Physician Assistant Surgical | DX: Z11.0 Encounter for screening for intestinal infectious diseases (principal) | CPT/HCPCS: 99211 ==

== ENCOUNTER 2023-04-12 13:57 | Outpatient (REF) | payer MEDICAID, SELFPAY | END 2023-04-12 13:58 | disposition home or self-care (01) | LOC: HO.LNP 13:57 | PROVIDERS: Visit Provider Surgery | DX: Z11.0 Encounter for screening for intestinal infectious diseases (principal) | CPT/HCPCS: 83013 ==

== ENCOUNTER 2023-04-21 10:33 | Outpatient (AMB) | payer MEDICAID, SELFPAY ==
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
--- NOTE | 2023-04-21 11:34 | MHC.OFFVISWM ---
Intake VS Expanded 04/21/23 11:47 Height 5 ft 8 in Weight 259 lb 8 oz BMI 39.5 Body Fat % 41.1 Body Fat Mass 106.7 Fat Free Mass 153 Body Water % 41.9 Body Water Mass 108.8 Intake Visit Reasons: TV Follow Up SWL - Allergies sulfamethoxazole [From BACTRIM] Allergy (Intermediate, Verified 03/22/23 12:54) HIVES trimethoprim [From BACTRIM] Allergy (Intermediate, Verified 03/22/23 12:54) HIVES HPI TV Follow Up SWL - HPI Details Start time: 11.33am, End time: 11.56am ?I spent 18 minutes speaking with the patient on the phone plus an additional 5 minutes reviewing and updating records for a total of 23 minutes HPI Comments History of Present Illness Details Overall weight loss: 5lbs, or 1.89% TBWL Off smoking for over 2 months now Is doing 2 Celebrate REBUILD protein shakes (1 scoop in 8oz almond milk), 2-3 Celebrate protein bars and one meal (10 forks of protein and 10 forks of salad or vegetables) Exercise: is doing treadmill at home at 3 days per week doing twice per day burning a minimum of 500 calories PFSH Medical History (Updated 04/21/23 @ 11:51 by Mc Nieto MD) Anxiety Depression History of opioid abuse Morbid obesity History of DVT (deep vein thrombosis) Family History Maternal Grandfather Myocardial infarction Family/Other Leukemia Social History (Updated 03/20/23 @ 14:39 by Gisela Martinez) Household Members: Spouse and Children Housing: Condominium Are you a primary care director rn to a significant other at home: No Do you presently have visiting nurse or other home services: No Patient Tobacco Use Status: Current everyday Tobacco user Tobacco use type: Cigarette Cigarette Packs Per Day: 1 e-Cigarette/Vaping Use: Never Used Substance Use Type: Marijuana service: No Current occupational status: employed Assessment & Plan Assessment & Plan (1) Obesity: Code(s): E66.9 - Obesity, unspecified Plan: 1. Please change the nutritional plan to 2 Celebrate REBUILD protein shakes (1 scoop in 8oz almond milk) and 2 Celebrate protein bars BEFORE DINNER, dinner at 5pm-6pm (10 forks of protein and 10 forks of salad or vegetables) AND one more Celebrate protein bar after dinner at 7pm-9pm 2. Exercise: continue treadmill at home but increase to 4 days per week doing two workouts per day burning a minimum of 500 calories in total. Goal is to burn 2000 calories per week collectively on the treadmill. 3. Continue to send me weight measurements weekly on (2) BMI 39.0-39.9,adult: Code(s): Z68.39 - Body mass index [BMI] 39.0-39.9, adult Telehealth Telehealth Location of provider rendering services: practice address Location of patient: address on file Patient Identification confirmed using: Name, : Yes Telehealth method: voice only Patient verbally consented to treatment: Yes Patient verbally consented to billing insurance company: Yes Patient informed of any privacy concerns related to visit: Yes Minutes spent on Phone/Video with Pt.: 23 Coding Level of Care Code Tele Est Pt Level 3 (04515) Diagnoses Obesity E66.9 BMI 39.0-39.9,adult Z68.39 Time Spent (min) 23
[2023-04-21 11:47] VITALS: BMI 39.5
== END 2023-04-21 11:56 | disposition home or self-care (01) ==
LOC: HO.HBS 10:33
PROVIDERS: PCP Nurse Practitioner Family; Visit Provider Surgery
DX: E66.9 Obesity, unspecified (principal); Z68.39 Body mass index [BMI] 39.0-39.9, adult
CPT/HCPCS: 99213

== ENCOUNTER → 2023-04-21 10:33 | Outpatient (BNVA) | payer MEDICAID, SELFPAY | PROVIDERS: PCP Nurse Practitioner Family; Visit Provider Surgery ==

== ENCOUNTER → 2023-04-28 13:40 | Outpatient (BNVA) | payer MEDICAID, SELFPAY | PROVIDERS: PCP Nurse Practitioner; Visit Provider Dietitian, Registered | DX: E66.01 Morbid (severe) obesity due to excess calories (principal); F17.210 Nicotine dependence, cigarettes, uncomplicated | CPT/HCPCS: 97802 ==

== ENCOUNTER 2023-05-19 08:33 | Outpatient (AMB) | payer MEDICAID, SELFPAY ==
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
--- NOTE | 2023-05-19 12:36 | A.OFFVIS_ITS ---
Intake VS Expanded 05/19/23 12:44 Height 5 ft 8 in Weight 254 lb 5 oz BMI 38.7 Body Fat % 39.1 Body Fat Mass 99.5 Fat Free Mass 154.9 Body Water % 42.9 Body Water Mass 109.1 Intake Visit Reasons: TV Follow Up SWL Allergies sulfamethoxazole [From BACTRIM] Allergy (Intermediate, Verified 03/22/23 12:54) HIVES trimethoprim [From BACTRIM] Allergy (Intermediate, Verified 03/22/23 12:54) HIVES HPI TV Follow Up SWL HPI Details Start time: 12.30pm, End time: 12.51pm ?I spent 16 minutes speaking with the patient on the phone plus an additional 5 minutes reviewing and updating records for a total of 21 minutes HPI Comments History of Present Illness Details Overall weight loss: 10.3lbs, or 3.89% TBWL Is doing 2 Celebrate Rebuild shakes (1 scoop each in 8oz almond milk), 3-4 Celebrate protein bars and one meal (10 forks of protein and 10 forks of salad or vegetables) Exercise: doing home treadmill twice per day for 1000 calories, at least 4-6 days per week PFSH Medical History (Updated 05/19/23 @ 12:48 by Mc Nieto MD) Anxiety Depression History of opioid abuse Morbid obesity History of DVT (deep vein thrombosis) Family History Maternal Grandfather Myocardial infarction Family/Other Leukemia Social History (Updated 03/20/23 @ 14:39 by Gisela Martinez) Household Members: Spouse and Children [facility] Are you a primary primary care nurse to a significant other at home: No Do you presently have visiting nurse or other home services: No Patient Tobacco Use Status: Current everyday Tobacco user Tobacco use type: Cigarette Cigarette Packs Per Day: 1 e-Cigarette/Vaping Use: Never Used Substance Use Type: Marijuana service: No Current occupational status: employed Assessment & Plan Assessment & Plan (1) Obesity: Code(s): E66.9 - Obesity, unspecified Plan: 1. Change nutritional plan to 2 Celebrate Rebuild shakes (HALF scoop each in 8oz almond milk), 3-4 Celebrate protein bars and one meal (10 forks of protein and 10 forks of salad or vegetables) 2. Exercise: continue home treadmill twice per day for 1000 calories, at least 4-6 days per week 3. Continue to send me weight measurements weekly on (2) BMI 38.0-38.9,adult: Code(s): Z68.38 - Body mass index [BMI] 38.0-38.9, adult Telehealth Telehealth Location of provider rendering services: practice address Location of patient: address on file Patient Identification confirmed using: Name, : Yes Telehealth method: voice only Patient verbally consented to treatment: Yes Patient verbally consented to billing insurance company: Yes Patient informed of any privacy concerns related to visit: Yes Minutes spent on Phone/Video with Pt.: 21 Coding Level of Care Code Tele Est Pt Level 3 (02127) Diagnoses Obesity E66.9 BMI 38.0-38.9,adult Z68.38 Time Spent (min) 21
[2023-05-19 12:44] VITALS: BMI 38.7
== END 2023-05-19 12:52 | disposition home or self-care (01) ==
LOC: HO.HBS 08:33
PROVIDERS: PCP Nurse Practitioner; Visit Provider Surgery
DX: E66.9 Obesity, unspecified (principal); Z68.38 Body mass index [BMI] 38.0-38.9, adult
CPT/HCPCS: 99213

== ENCOUNTER → 2023-05-19 08:33 | Outpatient (BNVA) | payer MEDICAID, SELFPAY | PROVIDERS: PCP Nurse Practitioner; Visit Provider Surgery ==

== ENCOUNTER 2023-05-24 13:39 | Outpatient (AMB) | payer OTHER, SELFPAY ==
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
== END 2023-05-24 14:09 | disposition home or self-care (01) ==
PROVIDERS: PCP Nurse Practitioner; Visit Provider Counselor Mental Health
DX: F39 Unspecified mood [affective] disorder (principal); F41.9 Anxiety disorder, unspecified; Z86.59 Personal history of other mental and behavioral disorders
CPT/HCPCS: 90834

== ENCOUNTER → 2023-05-24 13:39 | Outpatient (BNVA) | payer MEDICAID, SELFPAY | PROVIDERS: PCP Nurse Practitioner; Visit Provider Counselor Mental Health ==

== ENCOUNTER 2023-06-16 08:06 | Outpatient (AMB) | payer MEDICAID, SELFPAY ==
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
--- NOTE | 2023-06-16 12:01 | A.OFFVIS_ITS ---
Intake VS Expanded 06/16/23 12:06 Height 5 ft 8 in Weight 248 lb 9 oz BMI 37.8 Body Fat % 38.2 Body Fat Mass 95 Fat Free Mass 153.8 Body Water % 41.5 Body Water Mass 103.2 Intake Visit Reasons: TV Follow Up SWL Allergies sulfamethoxazole [From BACTRIM] Allergy (Intermediate, Verified 03/22/23 12:54) HIVES trimethoprim [From BACTRIM] Allergy (Intermediate, Verified 03/22/23 12:54) HIVES HPI TV Follow Up SWL HPI Details Start time: 12pm, End time: 12.11pm ?I spent 6 minutes speaking with the patient on the phone plus an additional 5 minutes reviewing and updating records for a total of 11 minutes HPI Comments History of Present Illness Details Overall weight loss: 15.9lbs, or 6% TBWL Is doing 2 Celebrate Rebuild shakes (HALF scoop in 8oz almond milk), 2 Celebrate protein bars and one meal (10 forks of protein and 10 forks of salad or vegetables) Exercise: is doing treadmill 5 days per week for 1000 calories per day PFSH Medical History (Updated 06/16/23 @ 12:11 by Mc Nieto MD) Anxiety Depression History of opioid abuse Morbid obesity History of DVT (deep vein thrombosis) Family History Maternal Grandfather Myocardial infarction Family/Other Leukemia Social History (Updated 03/20/23 @ 14:39 by Gisela Martinez) Household Members: Spouse and Children [facility] Are you a primary home health caregiver to a significant other at home: No Do you presently have visiting nurse or other home services: No Patient Tobacco Use Status: Current everyday Tobacco user Tobacco use type: Cigarette Cigarette Packs Per Day: 1 e-Cigarette/Vaping Use: Never Used Substance Use Type: Marijuana service: No Current occupational status: employed Assessment & Plan Assessment & Plan (1) Obesity: Code(s): E66.9 - Obesity, unspecified Qualifiers: Obesity type: due to excess calories Obesity classification: adult class 2 (BMI 35 - 39.9) Serious obesity comorbidity presence: with serious comorbidity Body mass index: BMI 38.0-38.9 Qualified Code(s): E66.01 - Morbid (severe) obesity due to excess calories; Z68.38 - Body mass index [BMI] 38.0- 38.9, adult Plan: 1. Continue same nutritional plan of 2 Celebrate Rebuild shakes (HALF scoop in 8oz almond milk), 2 Celebrate protein bars and one meal (10 forks of protein and 10 forks of salad or vegetables) 2. Exercise: continue treadmill 5 days per week for 1000 calories per day 3. Continue to send me weight measurements weekly on Telehealth Telehealth Location of provider rendering services: practice address Location of patient: address on file Patient Identification confirmed using: Name, : Yes Telehealth method: voice only Patient verbally consented to treatment: Yes Patient verbally consented to billing insurance company: Yes Patient informed of any privacy concerns related to visit: Yes Minutes spent on Phone/Video with Pt.: 11 Coding Level of Care Code Tele Est Pt Level 2 (20053) Diagnoses Class 2 severe obesity due to excess calories with serious comorbidity and body mass index (BMI) of 38.0 to 38.9 in adult E66.01; Z68.38 Obesity type: due to excess calories Obesity classification: adult class 2 (BMI 35 - 39.9) Serious obesity comorbidity presence: with serious comorbidity Body mass index: BMI 38.0-38.9 Time Spent (min) 11
[2023-06-16 12:06] VITALS: BMI 37.8
== END 2023-06-16 12:12 | disposition home or self-care (01) ==
LOC: HO.HBS 08:06
PROVIDERS: PCP Nurse Practitioner; Visit Provider Surgery
DX: E66.01 Morbid (severe) obesity due to excess calories (principal); Z68.38 Body mass index [BMI] 38.0-38.9, adult
CPT/HCPCS: 99212

== ENCOUNTER → 2023-06-16 08:06 | Outpatient (BNVA) | payer MEDICAID, SELFPAY | PROVIDERS: PCP Nurse Practitioner; Visit Provider Surgery ==

== ENCOUNTER 2023-07-14 08:01 | Outpatient (AMB) | payer MEDICAID, SELFPAY ==
[2023-07-14 12:54] VITALS: BMI 37.5
--- NOTE | 2023-07-14 12:54 | A.OFFVIS_ITS ---
Intake VS Expanded 07/14/23 12:54 Height 5 ft 8 in Weight 246 lb 8 oz BMI 37.5 Body Fat % 37.9 Body Fat Mass 93.5 Fat Free Mass 153.2 Body Water % 41.1 Body Water Mass 101.4 Intake Visit Reasons: TV Follow Up SWL Allergies sulfamethoxazole [From BACTRIM] Allergy (Intermediate, Verified 03/22/23 12:54) HIVES trimethoprim [From BACTRIM] Allergy (Intermediate, Verified 03/22/23 12:54) HIVES HPI TV Follow Up SWL HPI Details Start time: 11.25am, End time: 11.40am ?I spent 10 minutes speaking with the patient on the phone plus an additional 5 minutes reviewing and updating records for a total of 15 minutes HPI Comments History of Present Illness Details Overall weight loss: 18lbs, or 6.8% TBWL [facility] Medical History (Updated 06/16/23 @ 12:11 by Mc Nieto MD) Anxiety Depression History of opioid abuse Morbid obesity History of DVT (deep vein thrombosis) Family History Maternal Grandfather Myocardial infarction Family/Other Leukemia Social History (Updated 03/20/23 @ 14:39 by Gisela Martinez) Household Members: Spouse and Children Housing: Condominium Are you a primary nanny caregiver to a significant other at home: No Do you presently have visiting nurse or other home services: No Patient Tobacco Use Status: Current everyday Tobacco user Tobacco use type: Cigarette Cigarette Packs Per Day: 1 e-Cigarette/Vaping Use: Never Used Substance Use Type: Marijuana service: No Current occupational status: employed Assessment & Plan Assessment & Plan (1) Obesity: Code(s): E66.9 - Obesity, unspecified Qualifiers: Obesity type: due to excess calories Obesity classification: adult class 2 (BMI 35 - 39.9) Serious obesity comorbidity presence: with serious comorbidity Body mass index: BMI 38.0-38.9 Qualified Code(s): E66.01 - Morbid (severe) obesity due to excess calories; Z68.38 - Body mass index [BMI] 38.0- 38.9, adult Plan: 1. Needs to reschedule the echo and stress test 2. We discussed upcoming tests and dates 3. Needs to send me weight measurements jane Telehealth Telehealth Location of provider rendering services: practice address Location of patient: address on file Patient Identification confirmed using: Name, : Yes Telehealth method: voice only Patient verbally consented to treatment: Yes Patient verbally consented to billing insurance company: Yes Patient informed of any privacy concerns related to visit: Yes Minutes spent on Phone/Video with Pt.: 15 Coding Level of Care Code Tele Est Pt Level 2 (95461) Diagnoses Class 2 severe obesity due to excess calories with serious comorbidity and body mass index (BMI) of 38.0 to 38.9 in adult E66.01; Z68.38 Obesity type: due to excess calories Obesity classification: adult class 2 (BMI 35 - 39.9) Serious obesity comorbidity presence: with serious comorbidity Body mass index: BMI 38.0-38.9 Time Spent (min) 15
== END 2023-07-14 12:59 | disposition home or self-care (01) ==
LOC: HO.HBS 08:01
PROVIDERS: PCP Nurse Practitioner; Visit Provider Surgery
DX: E66.01 Morbid (severe) obesity due to excess calories (principal); Z68.38 Body mass index [BMI] 38.0-38.9, adult
CPT/HCPCS: 99212

== ENCOUNTER → 2023-07-14 08:01 | Outpatient (BNVA) | payer MEDICAID, SELFPAY | PROVIDERS: PCP Nurse Practitioner; Visit Provider Surgery ==

== ENCOUNTER → 2023-08-02 09:09 | Outpatient (BNV) | payer MEDICAID, SELFPAY | PROVIDERS: PCP Nurse Practitioner; Visit Provider Nurse Practitioner | DX: R94.31 Abnormal electrocardiogram [ECG] [EKG] (principal) | CPT/HCPCS: 93016; 93018; 93306 ==

== ENCOUNTER → 2023-08-02 09:09 | Outpatient (REF) | payer MEDICAID, SELFPAY ==
--- NOTE | 2023-08-02 09:09 | CA_ITS ---
Transthoracic Echocardiogram Patient (Last, First, Middle): Pio Sims, Gender: Male Date of : 1985 Age: 37 Procedure Date: 08/02/2023 Procedure Type: Transthoracic Echocardiogram Location: OP Height: 172.72 cm Weight: 115.67 kg BSA: 2.27 m2 Heart Rate: bpm BP: 130 / 90 mmHg Helicopter Crew Chief: TO Referring MD: Mc Nieto MD Hopper Feeder: Chin Matias MD Symptoms: R94.31 - Abnormal electrocardiogram [ECG] [EKG] Study Quality: Technically Difficult/No IV Access ECG Rhythm: Sinus Conclusions: - 1. Normal LV ejection fraction of 60 65% 2. Normal cardiac valvular Doppler 3. No gross pericardial effusion Findings Left Ventricle Normal left ventricular size, thickness, and systolic function. The visually estimated ejection fraction is between 60-65%. Regional wall motion abnormalities can not be excluded due to suboptimal endocardial definition. Spectral Doppler is indicative of a normal filling pattern. Right Ventricle Normal right ventricular cavity size. Atria The left atrium is normal in size. Interatrial shunt cannot be excluded. The right atrium was not well visualized. Aortic Valve Normal aortic valve structure and function. There is no aortic valve stenosis. There is no aortic valve regurgitation. Mitral Valve Normal mitral valve structure and function. There is trace mitral valve regurgitation. There is no mitral valve stenosis. Pulmonic Valve The pulmonic valve was not well visualized. Tricuspid Valve The tricuspid valve was not well visualized. Tricuspid regurgitation envelope is inadequate for calculation of right ventricular systolic pressure. Normal right atrial pressure. Great Vessels All visible segments of the aorta are normal in size. The pulmonary artery was not well visualized. There is no dilatation of the ascending aorta measuring 3.00 cm. Venous The inferior vena cava is normal in size and collapses greater than 50% with inspiration. Pericardium/Pleural There is no evidence of pericardial effusion. Prior Study Comparison No prior study available for comparison. Measurements 2D Linear Measurements IVSd: 1.07 0.6-0.9/0.6-1.0 cm LVIDd: 4.55 3.9-5.3/4.2-5.9 cm LVIDd Index: 2.00 2.4-3.2/2.2-3.1 cm/m2 LVIDs: 2.45 2.0-3.6 cm LVPWd: 0.83 0.7-1.1 cm LA Diam: 3.80 2.7-3.8/3.0-4.0 cm LAIDs Index: 1.67 1.5-2.3 cm/m2 LV Mass: 181.11 67-162/88-224 g LV Mass Index: 79.78 43-95/49-115 g/m2 LVOT Diam: 2.10 3.0+(-)1.3 cm Mitral Valve MV Pk E: 0.79 MV PK A: 0.45 MV Decel Time: 235.00 E/A: 1.80 E'Lateral: 13.40 E'Medial: 10.70 E/E' Med: 7.40 E/E' Lat: 5.90 PHT: 69.00 MVA PHT: 3.19 Decel Cassia: 3.37 Aortic Valve AoV Pk Avinash: 1.10 AoV Mn Avinash: 0.77 AoV VTI: 0.24 AoV Pk Grad: 5.00 Aov Mn Grad: 3.00 DIANA Cont.VTI: 2.70 LVOT LVOT Pk Avinash: 0.86 LVOT Mn Avinash: 0.59 LVOT VTI: 0.19 LVOT Pk Grad: 3.00 LVOT Mn Grad: 2.00 LVOT Diam: 2.10 LVOT Area: 3.46 Diastolic Function MV Pk E: 0.79 MV Pk A: 0.45 E/A: 1.80 E'Medial: 10.70 E/E' Med: 7.40 E' Laterial: 13.40 E/E' Lat: 5.90 Right Ventricle TAPSE (mm): 27.60 TVS' Avinash: 16.00 Tricuspid Valve RA Press: 3.00 Great Vessels Aorta Sinus of Valsalva: 3.61 2.0-3.[address] Ridge: 2.50 1.7-3.4 cm Ao Asc: 3.00 2.1-3.4 cm Updated in Other Vendor System with Status of Final Chin Matias MD electronically signed on 08/02/2023 4:26:55 PM with status of Final
--- NOTE | 2023-08-02 09:09 | CA_ITS ---
Acquisition Time: 2023-08-02 10:24:10 Total Exercise Time: 00:07:52 Test Indications: ABN EKG, PREOP Medications: SEE H Protocol: JULISA Max HR: 160 BPM 87% of Pred: 183 BPM Max BP: 170/070 mmHG Max Work Load: 9.5 METS Exercise stress test exercise 7 min 52 sec of Julisa protocol achieving 87% MPHR & 9.5 METs, with mild to moderate SOB, without chest discomfort, without arrhythmias, with normotensive response to exercise, without EKG changes. Test reviewed with Dr. Pierre. Referred By: Mc Nieto Overread By: Anna Saha
== END ==
LOC: HO.CARD 09:09
PROVIDERS: PCP Nurse Practitioner; Visit Provider Surgery
DX: R94.31 Abnormal electrocardiogram [ECG] [EKG] (principal)
CPT/HCPCS: 93017; 93306

== ENCOUNTER 2023-08-04 09:08 | Outpatient (REF) | payer MEDICAID, SELFPAY ==
--- NOTE | ~2023-08-04 | FL_ITS ---
EXAMINATION: XR FLUOROSCOPY UPPER GI WITH AIR CLINICAL INFORMATION: Preop evaluation prior to bariatric surgery COMPARISON: None TECHNIQUE: Fluoroscopic air contrast upper GI examination was performed utilizing standard techniques with thin and thick barium and effervescent granules. Numerous spot images were obtained. FINDINGS: Lateral cine images of the oropharynx and hypopharynx demonstrate normal swallow mechanism with normal epiglottic inversion and soft palate elevation. No tracheal penetration, glottic or subglottic aspiration identified. No nasopharyngeal reflux present. Hypopharyngeal structures appear normal without evidence of mass or diverticulum. There was no significant cricopharyngeal achalasia. Dual and single contrast images of the esophagus demonstrate normal caliber, contour, and mucosal pattern. No evidence of stricture, mass, or ulcerations identified. Esophageal peristalsis was normal. No evidence of hiatus hernia identified. Gastroesophageal reflux is seen up to the thoracic inlet. Dual contrast and single contrast images of the stomach demonstrated normal contour. There are a few tiny areas of contrast pooling in the fundus of the stomach that may represent small superficial ulcers. No evidence of mass or other abnormality is present. Contrast freely passed into the gastric antrum and duodenal bulb without delay. Single and air-contrast images of the duodenal bulb demonstrate no abnormality. The duodenal sweep has a normal appearance, course, and mucosal fold appearance. No malrotation. The imaged proximal jejunum has a normal fold pattern and caliber. FLUOROSCOPY TIME: 2 minutes 47 seconds Number of Spot Images: 15 Number of Cine: 7 DOSE AREA PRODUCT: 2690 uGy-m2 (microgray-meter squared) FL/FL upper GI w air IMPRESSION: 1. Significant gastroesophageal reflux. 2. Few tiny foci of contrast pooling in the fundus the stomach that may represent small mucosal ulcers. Recommend correlation with EGD. This procedure was performed by Miguel Ángel Cunningham PA-C, and supervised by Dr. Saha
== END 2023-08-04 09:09 | disposition home or self-care (01) ==
LOC: HO.XRAY 09:08
PROVIDERS: PCP Nurse Practitioner; Visit Provider Surgery
DX: E66.01 Morbid (severe) obesity due to excess calories (principal)
CPT/HCPCS: 74246

== ENCOUNTER → 2023-08-04 09:09 | Outpatient (BNV) | payer MEDICAID, SELFPAY | PROVIDERS: PCP Nurse Practitioner; Visit Provider Radiology Diagnostic Radiology | DX: Z01.818 Encounter for other preprocedural examination (principal) | CPT/HCPCS: 74246 ==

== ENCOUNTER 2023-08-10 10:22 | Outpatient (REF) | payer MEDICAID, SELFPAY ==
--- NOTE | ~2023-08-10 | US_ITS ---
EXAMINATION: US COMPLETE ABDOMEN WITH LIVER ELASTOGRAPHY CLINICAL INFORMATION: Morbid obesity. COMPARISON: None available. TECHNIQUE: Real-time imaging of the abdominal viscera. Noninvasive ultrasound liver fibrosis assessment is performed using Flako ElastPQ point quantification shear wave elastography (2D-SWE) with a C5-2 MHz transducer. Multiple elastography samples are obtained. FINDINGS: PANCREAS: Normal. The visualized pancreatic head and body are normal in appearance. The remainder of the pancreas is obscured from visualization by the overlying bowel gas. ABDOMINAL AORTA: The proximal, middle, and distal aortic segments are normal in caliber. INFERIOR VENA CAVA: Visualized portions are normal. LIVER: There is borderline hepatomegaly. The liver demonstrates normal contour and increased echogenicity. No focal lesion or intrahepatic biliary duct dilatation. The right lobe measures 17.0 cm in length. The left lobe measures 10.3 cm in length. Portal flow is towards the liver (hepatopetal). Shear wave liver elastography median stiffness is 1.92 m/s (reference: normal median stiffness is 1.3 m/s or less). IQR/median stiffness to assess sampling precision is 0.10 (reference: good quality data set is IQR/median stiffness of 0.15 or less). GALLBLADDER: Normal. The gallbladder is physiologically distended without evidence of stones, sludge, polyps, wall thickening or pericholecystic fluid. COMMON BILE DUCT: Normal in caliber measuring 0.4 cm in diameter. RIGHT KIDNEY: Normal. No hydronephrosis. No renal calculi or focal parenchymal lesions. The kidney measures 10.2 cm in maximum dimension. LEFT KIDNEY: At the upper pole laterally, a 1.3 cm benign, simple cyst is seen, for which no imaging follow-up is recommended. No hydronephrosis. No renal calculi or focal parenchymal lesions. The kidney measures 10.8 cm in maximum dimension. SPLEEN: Normal. The spleen measures 12.7 cm in maximum dimension. FREE FLUID: None. US/US abdomen comp w elastography IMPRESSION: 1. There is borderline hepatomegaly. 2. There is generalized increase in hepatic echotexture, consistent with fatty infiltration or hepatocellular disease. Please correlate clinically. No focal hepatic mass or intrahepatic biliary dilatation is seen. 3. Liver elastography: Measurements are suggestive of compensated advanced chronic liver disease but need further test for confirmation. REFERENCE: Society of Radiologists in Ultrasound Liver Stiffness Thresholds (2020): LIVER STIFFNESS THRESHOLDS: *Liver Stiffness equal or less than 1.3 m/s: High probability of being normal. *Liver Stiffness less than 1.7 m/s: In the absence of other known clinical signs, rules out compensated advanced chronic liver disease. *Liver Stiffness 1.7-2.1 m/s: Suggestive of compensated advanced chronic liver disease but need further test for confirmation. *Liver Stiffness over 2.1 m/s: Rules in compensated advanced chronic liver disease. *Liver Stiffness over 2.4 m/s: Suggestive of clinically significant portal hypertension. QUALITY OF DATA SET: *IQR/Median value equal or less than 0.15 implies a quality data set. *IQR/Median value over 0.15 implies a poor quality data set. SIGNIFICANT CHANGE FROM PRIOR EXAM: Significant change if liver stiffness measurement is 10% or greater from prior exam. OTHER CONSIDERATIONS: The stage of liver fibrosis may be overestimated in the setting of acute hepatitis, liver inflammation, elevated liver function tests, hepatic vascular congestion, obstructive cholestasis, non-fasting state, and infiltrative diseases such as amyloidosis and lymphoma. In some patients with NAFLD, the liver stiffness thresholds for compensated advanced chronic liver disease may be lower. In causes other than viral hepatitis and NAFLD, liver stiffness thresholds are not well established.
== END 2023-08-10 10:23 | disposition home or self-care (01) ==
LOC: HO.US 10:22
PROVIDERS: PCP Nurse Practitioner; Visit Provider Surgery
DX: E66.01 Morbid (severe) obesity due to excess calories (principal); Z86.718 Personal history of other venous thrombosis and embolism
CPT/HCPCS: 76700; 76981

== ENCOUNTER 2023-09-11 08:43 | Outpatient (AMB) | payer MEDICAID, SELFPAY ==
--- NOTE | 2023-09-10 14:02 | MHC.OFFVISWM ---
Intake VS Expanded 09/10/23 14:03 09/11/23 15:19 Height 5 ft 8 in 5 ft 8 in Weight 242 lb 3 oz 241 lb 7 oz BMI 36.8 36.7 Body Fat % 37.1 40.1 Body Fat Mass 89.8 96.9 Fat Free Mass 152.4 144.7 Body Water % 40.9 40.3 Body Water Mass 99.1 97.4 Intake Visit Reasons: TV Pre Op LSG 09/19/23 Allergies sulfamethoxazole [From BACTRIM] Allergy (Intermediate, Verified 03/22/23 12:54) HIVES trimethoprim [From BACTRIM] Allergy (Intermediate, Verified 03/22/23 12:54) HIVES Medication List - Last Reconciled 09/11/23 by Mc Nieto MD fondaparinux 2.5 mg (0.5 mL) subcut Q24H methadone 110 mg PO DAILY ondansetron 4 mg PO Q12H pantoprazole 40 mg PO DAILY polyethylene glycol 3350 (Miralax) 17 grams PO DAILY sucralfate 10 mL PO BID HPI TV Pre Op LSG 09/19/23 HPI Details Start time: 2.51pm, End time: 3.21pm ?I spent 15 minutes speaking with the patient on the phone plus an additional 15 minutes reviewing and updating records for a total of 30 minutes HPI Comments History of Present Illness Details Overall weight loss: 22.5lbs, or 8.5% TBWL Is doing 2 Celebrate Rebuild shakes (HALF scoop in 8oz almond milk), 2 Celebrate protein bars and one meal (10 forks of protein and 10 forks of salad or vegetables) Exercise: is doing treadmill 5 days per week for 1000 calories per day [facility] Medical History (Updated 06/16/23 @ 12:11 by Mc Nieto MD) Anxiety Depression History of opioid abuse Morbid obesity History of DVT (deep vein thrombosis) Family History Maternal Grandfather Myocardial infarction Family/Other Leukemia Social History (Updated 03/20/23 @ 14:39 by Gisela Martinez) Household Members: Spouse and Children Housing: Condominium Are you a primary rn primary care to a significant other at home: No Do you presently have visiting nurse or other home services: No Patient Tobacco Use Status: Current everyday Tobacco user Tobacco use type: Cigarette Cigarette Packs Per Day: 1 e-Cigarette/Vaping Use: Never Used Substance Use Type: Marijuana service: No Current occupational status: employed Physical Exam Vital Signs: BMI result Body Mass Index 36.8 Assessment & Plan Assessment & Plan (1) Morbid obesity: Code(s): E66.01 - Morbid (severe) obesity due to excess calories Plan: 1. Plan for lap sleeve gastrectomy including upper GI endoscopy. All tests has been completed and reviewed and the patient is cleared for the surgery. ?If diaphragmatic or ventral hernias are present at time of surgery, these will be repaired laparoscopically as well. 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 I emphasized the importance of close follow-up, adherence to instructions and good communication. So far he has proven to be an excellent communicator and very compliant with all our directions accomplishing a great weight loss. I believe that he is an excellent candidate and he is ready. 2. Preop prescriptions were provided and explained the purpose of each one. Need to be purchased preop. Start Pantoprazole now as you get it from the pharmacy, 1 pill per day. Sucralfate and Zofran are for after surgery as needed. 3. Bowel prep: please do 7 packets ?of Miralax mixing each one with a an 8oz glass of water, crystal light, gatorade zero, or propel ?on 09/17/23 and the same amount on 09/18/23. The Miralax you begin with one packet at a time in 8oz water or crystal light, gatorade zero, or propel ?as early in the day as you can and you do them back to back until you finish them. Continue the protein shakes during? the bowel prep. 4. Needs to purchase 1oz medicine cups . 5. Needs to purchase Children's liquid Tylenol for postop pain control. 6. He needs to stop the Eliquis on 09/12/23. Avoid aspirin, motrin, Advil, Aleve, Ibuprofen, Naproxyn. Tylenol is OK. 7. He needs to purchase the Celebrate 4:1 protein shakes from the hospital's gift shop. 8. Will do basic preop blood work-up any day between Monday09/11/23 and Monday09/16/23 fasting for 12 hours and is scheduled to see the Anesthesiologist prior to the day of surgery. 9. The next day you stop the Eliquis, you will begin one injection of Fondaparinux per day. The last dose of Fondaparinux will be on Monday09/17/23 10. Importance of adherence to postop folllow-up and recommendations was underscored and he understands that. 11. Stop food and bars as of tomorrow 09/11/23 and continue with 2 Celebrate REBUILD protein shakes (ONE scoop EACH in 8oz almond milk) at 8am-10am and 11am-1pm and three more Celebrate REBUILD protein shakes with TWO scoops in 8oz of almond milk at 2pm-4pm, 5pm-7pm and 8pm-10pm. 12. No soups, broths or V8 13. The patient's?medical?history has been reviewed and they are considered low risk for post op DVT and therefore DVT prophylaxis is not considered necessary. Travel after surgery was reviewed. The patient has not disclosed any travel plans during the first 30 days after surgery and they have been advised that within the first 30 days after surgery any bus, plane, train or car travel over 2 hours in duration is contraindicated due to the possibility of developing blood clots from immobility. Any travel, needs to include periods of ambulation of 10 minutes in duration every 2 hours.? Patient was instructed to discuss any plans for travel during this period with their bariatric surgeon.? 14. Please take at the day of surgery the following medications: NONE 15. Absolutely no smoking or vaping, or marijuana until the surgery and for at least the first 4 weeks. Only nicotine patches are allowed. 16. Send me weight measurements TODAY, next Monday09/17/23 and then on Monday09/19/23 the day of surgery before you go to the hospital. 17. Avoid any steroids by mouth for any reason. Let me know if someone prescribes them to you 18. These instructions supersede anything else you read in the handbook, anything you watched in videos or classes or you were told by any other provider. If there is any conflict, you follow the above instructions and nothing else. Orders: Orders TSH reflex Free T4 09/10/23 E66.01 - Morbid (severe) obesity due to excess calories Type and Screen 09/10/23 E66. - Morbid (severe) obesity due to excess calories Partial Thromboplastin Time 09/10/23 E66. - Morbid (severe) obesity due to excess calories Hemoglobin A1c 09/10/23 E66. - Morbid (severe) obesity due to excess calories Comprehensive Met. Panel 09/10/23 E66. - Morbid (severe) obesity due to excess calories Prothrombin Time INR 09/10/23 E66. - Morbid (severe) obesity due to excess calories C Reactive Protein 09/10/23 E66. - Morbid (severe) obesity due to excess calories Complete Blood Count Auto Diff 09/10/23 E66. - Morbid (severe) obesity due to excess calories Insulin 09/10/23 E66. - Morbid (severe) obesity due to excess calories Lipid Panel 09/10/23 E66.01 - Morbid (severe) obesity due to excess calories Medications: New pantoprazole 40 mg PO DAILY 90 tabs 0RF K21.9 - Gastro-esophageal reflux disease without esophagitis sucralfate 10 mL PO BID 600 mL 2RF K21.9 - Gastro-esophageal reflux disease without esophagitis fondaparinux Start on 09/13/23 and do the last one on 09/17/23 2.5 mg (0.5 mL) subcut Q24H 5 mL 0RF I82.409 - Acute embolism and thrombosis of unspecified deep veins of unspecified lower extremity ondansetron Only take one every 12 hours as needed if you have nausea 4 mg PO Q12H 20 tabs 0RF nausea and vomiting R11.0 - Nausea polyethylene glycol 3350 (Miralax) Mix each packet with 8oz of water, Crystal light, or Gatorade zero, or Propel and do 7 packets on 09/17/23 and another 7 packets on 09/18/23 17 grams PO DAILY 14 ea 0RF Z01.818 - Encounter for other preprocedural examination Telehealth Telehealth Location of provider rendering services: practice address Location of patient: address on file Patient Identification confirmed using: Name, : Yes Telehealth method: voice only Patient verbally consented to treatment: Yes Patient verbally consented to billing insurance company: Yes Patient informed of any privacy concerns related to visit: Yes Minutes spent on Phone/Video with Pt.: 30 Coding Level of Care Code Tele Est Pt Level 4 (45246) Diagnoses Morbid obesity E66.01 Time Spent (min) 30
[2023-09-10 14:03] VITALS: BMI 36.8
[2023-09-11 15:19] VITALS: BMI 36.7
== END 2023-09-11 15:22 | disposition home or self-care (01) ==
LOC: HO.HBS 08:43
PROVIDERS: PCP Nurse Practitioner; Visit Provider Surgery
DX: E66.01 Morbid (severe) obesity due to excess calories (principal); Z68.36 Body mass index [BMI] 36.0-36.9, adult
CPT/HCPCS: 99214

== ENCOUNTER → 2023-09-11 08:43 | Outpatient (BNVA) | payer MEDICAID, SELFPAY | PROVIDERS: PCP Nurse Practitioner; Visit Provider Surgery | DX: E66.01 Morbid (severe) obesity due to excess calories (principal); K21.9 Gastro-esophageal reflux disease without esophagitis; R11.0 Nausea; I82.409 Acute embolism and thrombosis of unspecified deep veins of unspecified lower extremity; Z01.818 Encounter for other preprocedural examination ==

== ENCOUNTER 2023-09-18 11:02 | Outpatient (REF) | payer MEDICAID, SELFPAY ==
[2023-09-18 11:30] LABS: MANUAL DIFF FLAG NO
[2023-09-18 12:37] LABS: Estimated Average Glucose 108 mg/dL; Hemoglobin A1c % 5.4 % (<6.0)
[2023-09-18 12:38] LABS: Partial Thromboplastin Time 32.7 SEC (26.0-36.8)
[2023-09-18 12:40] LABS: Basophils Percent Auto 0.3 % (0-2); Eosinophils Absolute Auto 0.1 X10*3/uL (0.0-0.4); Eosinophils Percent Auto 0.7 % (0-4); Hematocrit 42.5 % (42.0-52.0); Hemoglobin 13.9 g/dl (14.0-18.0); Imm Gran Abs Auto 0.03 X10*3/uL (0.00-0.03); Imm Gran Pct Auto 0.4 % (0.0-0.4); Lymphocytes Absolute Auto 1.7 X10*3/uL (1.2-4.9); Lymphocytes Percent Auto 23.9 % (20-40); Mean Corpuscular HGB Conc 32.7 g/dl (31.0-36.0); Mean Corpuscular Hemoglobin 27.5 pg (27.0-33.0); Mean Platelet Volume 9.3 fL (9.4-12.4); Monocytes Absolute Auto 0.4 X10*3/uL (0.1-1.2); Monocytes Percent Auto 5.7 % (2-11); Platelet Count 294 X10*3/uL (160-400); Red Blood Count 5.06 X10*6/uL (4.60-5.80); Red Cell Distribution Width 14.1 % (11.0-16.0); White Blood Count 7.2 X10*3/uL (4.8-10.8)
[2023-09-18 13:15] LABS: Alanine Aminotransferase 23 U/L (0-40); Albumin Level 4.4 g/dL (3.5-5.0); Alkaline Phosphatase 70 U/L (39-117); Anion Gap 13 (12-20); Aspartate Amino Transferase 19 U/L (5-37); Bilirubin Total 0.5 mg/dL (0.0-1.0); Blood Urea Nitrogen 15 mg/dL (9-16); C Reactive Protein 1.49 mg/dL (< or = 0.50); Calcium 9.5 mg/dL (8.4-10.2); Carbon Dioxide 26 mmol/L (22-29); Chloride 108 mmol/L (96-108); Cholesterol 152 mg/dL (<200); Estimated Glomerular Filt Rate > 60; Glucose Random 110 mg/dL (60-115); HDL Cholesterol 25 mg/dL (>40); Insulin 14 uU/mL (2-29); LDL Cholesterol Calculated 107 mg/dL (<100); Potassium 4.4 mmol/L (3.3-5.1); Sodium 143 mmol/L (135-145); TSH reflex Free T4 0.68 uIU/mL (0.32-4.0); Total Protein 8.6 g/dL (6.5-8.0); Triglycerides 102 mg/dL (<150)
== END 2023-09-18 11:03 | disposition home or self-care (01) ==
LOC: HO.LAB 11:02
PROVIDERS: Visit Provider Surgery
DX: E66.01 Morbid (severe) obesity due to excess calories (principal)
CPT/HCPCS: 36415; 80053; 80061; 83036; 83525; 84443; 85025; 85610; 85730; 86140

== ENCOUNTER 2023-09-19 06:29 | Inpatient (IN) | payer MEDICAID, SELFPAY ==
--- NOTE | 2023-09-15 10:42 | HO.ANESPROP2 ---
Documented by User: Deisy Peterson NP 09/18/23 14:16 HPI - Anesthesia Eval Consult details Narrative: 38yo M for Gastrectomy Sleeve,EGD,possible diaphragmatic Hernia,possible Ventral Hernia,Possible Open Methadone daily ? Fondaparinux daily - hx DVT, previously on eliquis but has not taken in months per PAT [facility] Active Problems Active Problems: All Active Problems (Updated 06/16/23 @ 12:11 by Mc Nieto MD) BMI 38.0-38.9,adult (Acute) BMI 39.0-39.9,adult (Acute) Obesity (Acute) Abnormal EKG (Acute) Anxiety (Acute) Depression (Acute) Morbid obesity (Acute) DVT (deep venous thrombosis) (Chronic) Past Medical History Medical History Anxiety Depression History of opioid abuse Morbid obesity History of DVT (deep vein thrombosis) Family History Family History Maternal Grandfather Myocardial infarction Family/Other Leukemia Surgical History Surgical History No pertinent past surgical history Social History Social History Household Members: Spouse and Significant [facility] Are you a primary restorative care technician to a significant other at home: No Do you presently have visiting nurse or other home services: No Patient Tobacco Use Status: Former Tobacco user Quit Date: 09/2022 Tobacco use type: Cigarette Cigarette Packs Per Day: 1 Years Smoked: 20 Substance Use Type: Marijuana Substance Use Frequency: Occasionally Have you been hit, kicked, punched, or otherwise hurt by someone within the past year? If so, by whom?: No Are you DNR?: No Advance Directives: No Advance Directives Information Provided: Yes Advance Directives on File: No Recently lost weight without trying: No Nutrition Risks: No Nutritional Risk Poor oral hygiene: No service: No Current occupational status: employed Meds Allergies Allergy/AdvReac Type Severity Reaction Status Date / Time sulfamethoxazole Allergy Intermediate HIVES Verified 09/19/23 06:33 [From BACTRIM] trimethoprim [From BACTRIM] Allergy Intermediate HIVES Verified 09/19/23 06:33 Home Medications Medication Instructions Recorded Confirmed Last Taken Type methadone 10 mg tablet 110 mg PO DAILY 03/22/23 09/18/23 09/19/23 History Exam Pertinent Lab Results Pertinent Lab Results: Lab Results 09/18/23 Range/Units 11:21 Blood Type O Positive Antibody Screen NEGATIVE Laboratory Tests 09/18/23 11:29 WBC 7.2 Hgb 13.9 L Hct 42.5 Plt Count 294 Sodium 143 Potassium 4.4 Chloride 108 Carbon Dioxide 26 BUN 15 Creatinine 0.89 Narrative Narrative: EKG 03/2023 Vent. Rate : 080 BPM Atrial Rate : 080 BPM P-R Int : 180 ms QRS Dur : 094 ms QT Int : 378 ms P-R-T Axes : 023 001 000 degrees QTc Int : 435 ms Normal sinus rhythm Possible Inferior infarct , age undetermined Abnormal ECG When compared with ECG of 02-DEC-2014 15:56, No significant change was found Exercise Stress 07/2023 Protocol: DANNY Max HR: 160 BPM 87% of Pred: 183 BPM Max BP: 170/070 mmHG Max Work Load: 9.5 METS Exercise stress test exercise 7 min 52 sec of Danny protocol achieving 87% MPHR & 9.5 METs, with mild to moderate SOB, without chest discomfort, without arrhythmias, with normotensive response to exercise, without EKG changes. Test reviewed with Dr. Pierre. ECHO 07/2023 Conclusions: - 1. Normal LV ejection fraction of 60 65% 2. Normal cardiac valvular Doppler 3. No gross pericardial effusion Assessment and Plan Assessment Anesthesia Assessment: Chart Reviewed Documented by User: Geneva Vazquez MD 09/19/23 08:41 HPI - Anesthesia Eval Consult details Narrative: 38yo M for EGD, Laparoscopic Sleeve Gastrectomy, possible diaphragmatic Hernia repair, possible Ventral Hernia repair, Possible Open Methadone daily ? Fondaparinux daily - hx DVT, previously on eliquis but has not taken in months per PAT RN [facility] Active Problems Active Problems: All Active Problems (Updated 09/19/23 @ 07:18 by Geneva Vazquez MD) Abnormal EKG (Acute) Anxiety (Acute) Depression (Acute) Morbid obesity BMI 36.9 H/o DVT 2years ago. Was on anticoagulants for about 1year. Stopped by MD about 1 year ago Denies FOREIGN On methadone. 10mg this morning Former smoker. Quit about 1yr ago Marijuana about a month ago Past Medical History Medical History Anxiety Depression History of opioid abuse Morbid obesity History of DVT (deep vein thrombosis) Family History Family History Maternal Grandfather Myocardial infarction Family/Other Leukemia Family history of problems with anesthesia: No Surgical History Surgical History No pertinent past surgical history History of Problems with Anesthesia: No Social History Social History Household Members: Spouse and Significant Other Housing: [facility] Are you a primary restorative care technician to a significant other at home: No Do you presently have visiting nurse or other home services: No Patient Tobacco Use Status: Former Tobacco user Quit Date: 09/2022 Tobacco use type: Cigarette Cigarette Packs Per Day: 1 Years Smoked: 20 Substance Use Type: Marijuana Substance Use Frequency: Occasionally Have you been hit, kicked, punched, or otherwise hurt by someone within the past year? If so, by whom?: No Are you DNR?: No Advance Directives: No Advance Directives Information Provided: Yes Advance Directives on File: No Recently lost weight without trying: No Nutrition Risks: No Nutritional Risk Poor oral hygiene: No service: No Current occupational status: employed Meds Allergies Allergy/AdvReac Type Severity Reaction Status Date / Time sulfamethoxazole Allergy Intermediate HIVES Verified 09/19/23 06:33 [From BACTRIM] trimethoprim [From BACTRIM] Allergy Intermediate HIVES Verified 09/19/23 06:33 Home Medications Medication Instructions Recorded Confirmed Last Taken Type methadone 10 mg tablet 110 mg PO DAILY 03/22/23 09/18/23 09/19/23 History Exam Height,Weight and Vital Signs: Height 5 ft 8 in Weight 110.132 kg Vital Signs Temp Pulse Resp BP Pulse Ox O2 Del Method 09/19/23 07:16 97.9 F 82 18 133/69 100 Room Air Pertinent Lab Results Pertinent Lab Results: Lab Results 09/18/23 Range/Units 11:21 Blood Type O Positive Antibody Screen NEGATIVE Laboratory Tests 09/18/23 11:29 WBC 7.2 Hgb 13.9 L Hct 42.5 Plt Count 294 Sodium 143 Potassium 4.4 Chloride 108 Carbon Dioxide 26 BUN 15 Creatinine 0.89 Laboratory Results - last 24 hr 09/18/23 11:21 Blood Type O Positive Antibody Screen NEGATIVE Airway Mallampati Class: II TM Dist: >3cm Neck ROM: Full Loose/Missing/Broken Teeth: Yes (Missing 1 tooth top back Right. Denies loose or broken teeth) Heart: RRR Lungs: CTAB Assessment and Plan Assessment Anesthesia Assessment: Anesthesia Plan Discussed and Chart Reviewed Final Anesthetic Review Family History of Problems with Anesthesia: No History of Problems with Anesthesia: No NPO: Yes ASA Class: III Final Preanesthetic Review: No Changes in Pt Med Stat, Meds/Allgs Chart Reviewed, Consent Obtained/Reviewed and Anes Risks/Benef Reviewed Patient Risk: Intermediate Procedure Risk: Intermediate Assessment/Block/Sedation in SS: Assess/Block/Sedation-SS Anesthetic Plan Anesthetic Plan: GA Disposition: Standard PACU and Inp. Admit - Standard Bed
[2023-09-18 13:42] VITALS: BMI 36.6
[2023-09-19] VITALS (13 sets, daily range): BP systolic 116–136; BP diastolic 65–83; PULSE 50–82; RESP 13–18; TEMP 36.2–36.6; O2SAT 94–100; BMI 36.9; BMI 39.7
[2023-09-19] MEDS: Lactated Ringers 1,000 ML 999 ML IV (06:50)
[2023-09-19] MEDS: Lactated Ringers 1,000 ML 100 ML IVCONT ×3 (06:50→21:59)
--- NOTE | 2023-09-19 07:12 | PC.NURSE ---
Dr. Nieto and Russell Dunn notified this morning that patient started bowel prep on Monday and stated that he maybe had 3 movements since. Patient voided here and it was soft, formed stool and a lot filling toilet - notified of this. doctor requested to start IV and get patient ready per protocol until his arrival. Difficult IV access. 2 attempts by Izabel Franklin RN and insertion by Lucía Wright RN.
[2023-09-19] MEDS: Aprepitant 32 MG/4.4 ML VIAL IVPUSH (07:31)
--- NOTE | 2023-09-19 07:45 | P.DS_ITS ---
DS: Providers Provider Date of Service: 09/20/23 Date of admission: 09/19/23 06:29 Primary care physician: Flower Duvall APRN DS: Summary Hospital Course Hospital Course: ADMITTING DIAGNOSIS: morbid obesity, hx of DVT and opiod abuse DISCHARGE DIAGNOSIS: same, s/p laparoscopic sleeve gastrectomy PAST SURGICAL HISTORY: none PROCEDURE: upper endoscopy, laparoscopic sleeve gastrectomy DISCHARGE SUMMARY: History of Present Illness: The patient is a 38 year-old man with a BMI of 40.2 kg/m2 and associated co- morbidities as described above. The patient had extensive work-up, lost 22.5 lbs preoperatively and was electively scheduled for laparoscopic, possible open sleeve gastrectomy and gastropexy. Risks and complications of the surgery were discussed with the patient in advance, particularly the possibility of , pulmonary embolism, anastomotic leak, bleeding, bowel injury, GERD, cardiac, renal or pulmonary complications. The patient understood all the risks and was in agreement with the surgical plan. Hospital Course: The patient underwent an uneventful laparoscopic sleeve gastrectomy with gastropexy on the day of admission. Postoperatively, the patient was transferred to the surgical floor. The patient received IV Acetaminophen and IV dilaudid for pain control. Patient was started on bariatric phase 1 diet POD #0. On postopera tive day one, the patient was feeling well without nausea, vomiting, fevers, or tachycardia. The patient had some mild incisional pain and the abdomen was soft. On the morning of postoperative day one, the patient was continued on 1 ounce of water or ice every half hour. During the day, the patient did fairly well, having some incisional pain, but able to ambulate adequately and to tolerate liquids well. Since the patient is doing well, we decided that the patient was ready to be discharged. The patient was given instructions to follow-up with me next week and to call my office for any fever over 101, persistent abdominal pain, nausea, vomiting, GERD, symptoms of DVT such as calf tenderness, or leg swelling, or pulmonary embolism such as chest pain or shortness of breath. The patient was also instructed to drink 40-60 ounces of liquids per day using the 1-ounce cups. The patient had been given prescriptions for Tylenol for pain, Zofran prn for nausea, and pantoprazole and carafate previously. The patient was encouraged to ambulate and use the incentive spirometer. The patient was allowed to shower, but no baths, and encouraged to stay active at home. All of these instructions were given to the patient personally. All questions were answered and the patient understood all instructions, the instructions were also given to the patient in print. Time Attestation Discharge Coordination Time (in mins): 20 minutes Quality: Safe Use of Opioids Does Pt have an Active Cancer Diagnosis on the Problem List?: No Quality: Stroke Does the patient have a stroke diagnosis?: No Physical Exam Vital Signs: Vital Signs: Last Vital Signs Temp 97.9 F 09/19/23 07:16 Pulse 82 09/19/23 07:16 Resp 18 09/19/23 07:16 BP 133/69 09/19/23 07:16 Pulse Ox 100 09/19/23 07:16 O2 Del Method Room Air 09/19/23 07:16 BMI result Body Mass Index 36.9 DS: Data Data Completed and Pending Labs on day of discharge: Laboratory Results - last 24 hr 09/18/23 11:21 Blood Type O Positive Antibody Screen NEGATIVE Discharge Plan Discharge Anticipated Discharge Date/Time: 09/20/23 10:43 Patient Disposition: Home, Self-Care Discharge Diagnosis: s/p sleeve gastrectomy Referrals: Flower Duvall APRN [Primary Care Provider] - 1 Week Discharge Medications: Continued methadone 10 mg tablet 110 mg PO DAILY pantoprazole 40 mg tablet,delayed release (DR/EC) 40 mg PO DAILY Qty: 90 0RF sucralfate 100 mg/mL suspension 10 ml PO BID Qty: 600 2RF ondansetron 4 mg tablet,disintegrating 4 mg PO Q12H Qty: 20 0RF Rx Instructions: Only take one every 12 hours as needed if you have nausea Discharge Orders: Discharge Order (Routine); Ordered 09/20/23 Ordered By: Mc Nieto Activity on Discharge: No heavy lifting Stand Alone Forms: Patient Portal Discharge page Care Plan Goals: weight loss Health Concerns: morbid obesity Plan of Treatment: No tub baths, sex or returning to work until discussed at first post op appointment. No exercise, alcohol, tobacco or illegal drug use. Continue to use incentive spirometer hourly while awake. Walk in home for 5- 10 minutes every 2 hours during the first week. Continue phase 1 diet today and start phase 2 diet tomorrow morning. Follow all instructions in the bariatric handbook and call with any questions. 1. Please call your doctor or come back to the emergency room should any new symptoms arise. 2. You will receive a courtesy call from [facility] 24-48 hours after discharge. 3. Activity: abstain from alcohol, practice limited stair climbing, no bending, no driving, no exercise, no illicit substances, no lifting, no sex, no tub bath, no work. 4. Diet: continue as discussed with bariatric team.. 5. Dressing Change/Wound Care: Do not change or remove surgical dressings unless they are wet or soiled. 6. Call your doctor if: - Your temperature exceeds 101.5 F - You experience excessive pain or swelling - You have an unexpected reaction to medication - You have excessive bleeding - You experience continued vomiting/nausea - Your incision begins to separate - Your incision shows signs of infection such as increased redness, swelling, excessive pain, heat, or drainage (light blood or clear fluid is normal) 7. General instructions: No lifting greater than 5 lbs for 1 week and not more than 20lbs the next 3?weeks. No driving until seen at the office in 5-7 days after surgery. If you do not move your bowels in the next 2 days, please tell?Dr. Nieto. Please walk around your home every hour or two to prevent blood clots from forming in your legs. You do not need to wake from sleeping to walk. Please sleep in a bed or couch to prevent kinking at the hips and knees. Please take your incentive spirometer (your lung computer network and systems engineer) home with you and use it for the next few days to prevent pneumonia. You may shower, no hot tubs, baths or swimming pools.?Please follow the post op diet instructions you are?given by Dr Dorys grimes? and text me daily at 5-6pm for an update.?If you have any issues or concerns or questions please communicate this to him via text.? The Celebrate shakes have all of the bariatric vitamins you need if you c onsume these shakes. If you are drinking other protein shakes, you will need to purchase the Celebrate multivitamins and calcium that are available in the hospital gift shop on the first floor of the main hospital.??Do not take anything without first discussing with Dr Nieto. Please make sure you are consuming at least 40 ounces of fluids per day starting the?day AFTER your discharge from the hospital. Always drink 1-2 ml per minute using the 5ml?syringe. If you drink faster you may experience?bloating,?gas pain, burping, nausea or heartburn. In that case please slow down your pace and use the syringe to?understand better the?proper?pace and volume of drinking. Do not hesitate to contact the office with any questions at . The patient's medical history has been reviewed and they are considered low risk for post op DVT and therefore DVT prophylaxis is not considered necessary. Travel after surgery was reviewed. The patient has not disclosed any travel plans during the first 30 days after surgery and they have been advised that within the first 30 days after surgery any bus, plane, train or car travel over 2 hours in duration is contraindicated due to the possibility of developing blood clots from immobility. Any travel, needs to include periods of ambulation of 10 minutes in duration every 2 hours. The patient was instructed to discuss any plans for travel during this period with their bariatric surgeon. Assessment: stable, post op sleeve gastrectomy Discharge Date/Time: 09/20/23 09:21
--- NOTE | 2023-09-19 07:45 | P.HPSUR_ITS ---
Pre-Procedural Eval Section A - 24 Hr Update-Section A only Date of Service: 09/19/23 The patient is an INPATIENT: Yes The patient has been examined within 24 hours of the surgical procedure. The History & Physical has been completed within 30 days and I have reviewed it.: Yes Section B - Complete if H&P > 30 days Chief Complaint: obesity Relevant Family History (Specify if Yes): No Relevant Social History: None Present Medications: None Medical History: No relevant PMH History of Previous Operations: No relevant previous surgery Allergies: Allergies Allergy/AdvReac Type Severity Reaction Status Date / Time sulfamethoxazole Allergy Intermediate HIVES Verified 09/19/23 06:33 [From BACTRIM] trimethoprim [From BACTRIM] Allergy Intermediate HIVES Verified 09/19/23 06:33 Review of Systems Sugical H&P ROS: Negative: Constitution, Cardiovascular, Respiratory, Neurological, Psychiatric, Hem-Onc, Allergic/Immunologic, Gastrointestinal, Genitourinary, Musculoskeletal, Integumentary, Endocrine and Eye s/Ears/Nose/Throat Exam Surgical H&P Exam: Normal: HEENT, Normal: Heart, Normal: Lungs, Normal: Extremities, Normal: Abdomen, Normal: Skin and Normal: Neurological Plan Diagnosis/Plan: Unchanged I have reviewed the history and physical and performed a pertinent physical examination on my patient. No changes have occurred unless specified. Time Spent With Patient Time: Total time managing care of this patient today ____ minutes.
--- NOTE | 2023-09-19 07:47 | P.BOP_ITS ---
Brief Operative Note Date of Service: 09/19/23 Pre-op diagnosis: Severe obesity with comorbidities (see below) Post-op diagnosis: same (& congenital abdominal adhesions) Procedure: INITIAL PATIENT BMI ON PRESENTATION AT OUR OFFICE:40.3kg/m2 LAST BMI BEFORE SURGERY:38.3 kg/m2 COMORBIDITIES: GERD, depression, anxiety, liver fibrosis, liver fibrosis ?The patient presented to the Weight Management Program with significant obesity that was negatively impacting the patient's comorbidities as listed above.? The program is a phased program with a special focus on preoperative medical weight management to promote substantial weight loss and prepare the patients for the second phase of the program: bariatric surgery. The patient participated in an intensive weekly lifestyle ?intervention and exercise program during which the patient ?has lost between the initial office visit and the last preoperative visit 23.1lbs, or 8.72% of initial actual body weight. It was deemed appropriate for the patient to now have bariatric surgery. In light of the current Covid-19 pandemic and the well documented strong association of obesity and increased risk of worse outcomes if infected with Covid-19 (REFERENCES: https://pubmed.ncbi.nlm.nih.gov/79623816/ ,? https://pubmed.ncbi.nlm.nih.gov/39748384/ ), any delay in undergoing bariatric surgery may lead to the patient's worsening health condition and increased?risk of more severe Covid-19 disease if infected. In addition a recent?study from [facility] published in [facility] on 07/05/2021 ([email or web address]) found that, among patients with obesity, substantial weight loss achieved with surgery was associated with improved outcomes of COVID-19 infection. The findings suggest that obesity can be a modifiable risk factor for the severity of COVID-19 infection. In addition, the patient met the BMI-criteria for bariatric surgery based on the BMI on initial presentation. The patient should not be penalized for achieving such weight loss because ?it is not sustainable long-term without surgical intervention and it was achieved in preparation for bariatric surgery ?under my direction and based on my published research ([email or web address]).[email or web address] and? https://www.soard.org/article/[email or web address](28)80130-X/pdf ) ?that a 10% preoperative weight loss improves long-term weight loss after surgery and reduces perioperative complications.? Insurance carriers such as [facility] have endorsed my recommendations ?and have included in their policies criteria to include a 10% preoperative weight loss requirement. PROCEDURE: Esophago-gastroscopy, laparoscopic lysis of adhesions, laparoscopic sleeve gastrectomy and laparoscopic gastropexy INDICATIONS: This is a 38 year-old male who was electively scheduled for laparoscopic, possibly open sleeve gastrectomy. The risks and complications of the procedure were discussed with the patient in advance, particularly the possibility of ; pulmonary embolism; staple line leak; bleeding; GERD; cardiac, pulmonary, or renal complications; as well as long-term problems such a s insufficient weight loss, vitamin deficiency, strictures, or ulcers. The patient understood all the risks, and was in agreement to proceed with surgery. DESCRIPTION OF PROCEDURE: After informed consent was obtained from the patient, the patient was given preoperative antibiotics, and was transferred to the operating room. After successful induction of general anesthesia, pneumatic compression devices were placed on both lower extremities. An upper endoscopy was performed next. The oropharynx and esophagus appeared to be within normal limits. There was no diaphragmatic hernia present consistent with the findings of the preoperative upper GI. The stomach was entered. Then after all fluid and air were suctioned and the stomach was fully decompressed, the scope was withdrawn and secured in the mid esophagus. The patient was then prepped and draped in the usual sterile manner, and abdominal access was established at the right upper quadrant with the Greta technique. A 12 mm blunt port was inserted, and the abdomen was insufflated with CO2 to a pressure of 15 mmHg. Under direct visualization, additional ports were placed, specifically two 5 mm Versi-step ports to the left upper quadrant, and a 5 mm Versi-Step port to the right upper quadrant. 1% lidocaine plain was used to infiltrate all port sites as well as all fascia defects. Following that, the patient was placed in a steep reverse Trendelenburg position. An additional 5 mm port was placed to the right flank for the Mediflex retractor that was used to retract the left lobe of the liver. The gastro-esophageal fat pad was opened with the ultrasonic device (Thunderbeat, Olympus) and the anterior esophagus and hiatus were exposed. The angle of His was opened with the ultrasonic device the fundus of the stomach from any diaphragmatic and splenic attachments. I then opened the gastrocolic ligament between the transverse colon and the greater curvature of the stomach with the ultrasonic device to enter the lesser sac and facilitate the ligation of the short gastric vessels. I started at a mid-point along the greater curvature and using the Thunderbeat, all short gastric vessels were divided all the way to the angle of His until the left vanessa was completely dissected at its entirety. I then divided the gastro-colic ligament distally to a distance of about 3-4 cm proximal to the pylorus. There were extensive congenital adhesions between the pancreas and posterior gastric wall. Those were lysed completely with the ultrasonic device. Adhesiolysis took approximately 45 min to complete. The stomach was then divided transversely with two Endo RONI-45 purple and four RONI-60 articulating purple loads using the SIGNIA stapler and loads. Every effort was made that the gastric sleeve had a tubular shape and an even caliber throughout. Once the sleeve resection was completed, the staple line of the gastric sleeve was reinforced with Hemoclips. The resected stomach was retrieved without difficulty from the Greta port. A gastropexy was then performed in order to prevent postoperative GERD and partial gastric volvulus. Several interrupted 2.0 Surgidac sutures were placed between the sleeve's staple line and the previously divided greater omentum and gastro-colic ligament using the Endo-Stitch device. ?An upper endoscopy was performed. There was no narrowing at the GE junction. The scope was easily advanced all the way to the pylorus which was clearly visualized. There was no narrowing anywhere and the sleeve's caliber was even throughout. The sleeve's staple line was inspected and there was no evidence of ischemia, bleeding or dehiscence. At that point the gastroscope was withdrawn from the patient?s mouth while we were decompressing the bowel and the stomach from any remaining air. I looked into the lesser sac to see how the sleeve was situating and it was situating well. There was no bleeding from the staple line, spleen, or short gastric vessels. The Mediflex retractor was removed, and the undersurface of the liver was inspected and there was no bleeding. The patient was placed in supine position. I closed the fascial defect of the 12 mm port site with a figure of eight #1 Polysorb suture. Then 30cc Ropivacaine plain with 10 mg of Dexamethasone were used to infiltrate the fascial closure as well as all skin incisions. A total of 7ml Zynrelef was applied in the Neely wound. At this point, the abdomen was deflated, all ports were removed under direct vision, and no bleeding was noted from any of the port sites. The skin incisions were irrigated with saline and were closed with 4-0 absorbable monofilament sutures. Steri-Strips and OpSites were used to cover all incisions. The patient was extubated and was transferred in stable condition to the recovery room for further care. I was present and performed all sheridan parts of the procedure. Ms. Sueroson was the social and human services assistant. There were no residents to assist with this case. Franko Nieto MD, PhD, FACS Surgeon: Mc Nieto MD Anesthesia: GETA, local and other (TAP block and 7ml Zynrelef) Was an Software Tools Developer used for this Procedure?: No Software Tools Developer: Rosalia Dorado Estimated blood loss (mL): 10 IV fluids (mL): 2,000 Urine output (mL): 0 (No Nevarez to record output) Pathology: other (Stomach) Condition: stable Disposition: PACU
--- NOTE | 2023-09-19 07:50 | P.PNGS_ITS ---
Subjective Subjective Date of Service: 09/20/23 Interval history: Feels well. Mild incisional pain. She is tolerating phase 1 bariatric diet Physical Exam 2 Vital Signs: Vital Signs: Last Vital Signs Temp 97.9 F 09/19/23 07:16 Pulse 82 09/19/23 07:16 Resp 18 09/19/23 07:16 BP 133/69 09/19/23 07:16 Pulse Ox 100 09/19/23 07:16 O2 Del Method Room Air 09/19/23 07:16 BMI result Body Mass Index 36.9 GI: Inspection: Yes normal to inspection, Yes incision (clean, dry and intact) and Yes obesity Palpation (GI): Soft to palpation Extrem: Right lower extremity: normal to inspection (no calf tenderness) L eft lower extremity: normal to inspection (no calf tenderness) Objective Data Active Medications Albuterol Sulfate (Albuterol Sulfate (0.083%) 2.5 Mg/3 Ml Vial.Neb) 2.5 mg INHALE ONCE PRN PRN Reason: Shortness of Breath/Wheezing Lactated Ringer's (Lr) 1,000 mls @ 100 mls/hr IVCONT .Q10H JUAQUIN Last Admin: 09/19/23 06:50 Dose: 100 mls/hr Documented By: YOUNG Labs 09/20/23 05:46 09/20/23 05:46 Labs: Laboratory Results - last 24 hr 09/18/23 11:21 Blood Type O Positive Antibody Screen NEGATIVE Procedures Date of Service Date of Service: 09/20/23 Progress Note: A&P Assessment and plan (1) Depression: Status: Acute (2) Anxiety: Status: Acute (3) GERD (gastroesophageal reflux disease): Status: Acute (4) Steatosis, liver: Status: Acute (5) Liver fibrosis: Status: Acute (6) S/P laparoscopic sleeve gastrectomy: Status: Acute Assessment and Plan: s/p laparoscopic sleeve gastrectomy, lysis of adhesions and gastropexy Doing well Will check am labs and if OK the patient will be discharged home (7) Morbid obesity: Status: Acute (8) History of opioid abuse: Status: Acute (9) Congenital intra-abdominal adhesions: Status: Acute Time Spent With Patient Time: Total time managing care of this patient today ____ minutes. Quality Stroke Does the patient have a stroke diagnosis?: No VTE Prior VTE?: Yes VTE Risk Level:: Surgical - moderate VTE Device Contraindication: N/A - Device Ordered VTE Drug Contraindication: Treatment Not Indicated
--- NOTE | 2023-09-19 10:16 | PHA.MEDREC ---
Pharmacy Consult ? Medication Reconciliation Pharmacy has completed the medication reconciliation. Med rec done by nurse but pharmacy double checked.
[2023-09-19 11:20] LABS: Hematocrit 38.2 % (42.0-52.0); Hemoglobin 12.4 g/dl (14.0-18.0)
[2023-09-19 11:34] LABS: Anion Gap 9 (12-20); Blood Urea Nitrogen 16 mg/dL (9-16); Carbon Dioxide 26 mmol/L (22-29); Chloride 106 mmol/L (96-108); Creatinine Clr Calc Pharmacy 133.9; Estimated Glomerular Filt Rate > 60; Glucose Random 128 mg/dL (60-115); Potassium 4.7 mmol/L (3.3-5.1); Sodium 136 mmol/L (135-145)
[2023-09-19] MEDS: Famotidine/PF 20 MG/2 ML VIAL IVPUSH ×2 (12:29→19:34)
[2023-09-19] MEDS: ceFAZolin Sodium/Dextrose,Iso 2 GM/50 ML PIGGYBACK IV (13:41)
--- NOTE | 2023-09-19 13:52 | HE.PHANOTE ---
METHADONE VERIFICATION: Methadone dose: 110 mg. Last given on 09/17/23 (take home bottle). Verified by [facility] .
[2023-09-19] MEDS: Acetaminophen 1,000 MG/100 ML PIGGYBACK 16.7 MG IV ×2 (14:45→19:33)
--- NOTE | 2023-09-19 15:40 | MHC.CM.PN ---
Male 38 S/P Gastric sleeve He lives with his spouse. He is independent with all functional mobility. A copy of his HCP has been requested. DP home self care. Patient will arrange for a ride home.
[2023-09-19] MEDS: 0.9 % Sodium Chloride Flush 3 ML SYRINGE IVFLUSH (19:34)
[2023-09-20] MEDS: Acetaminophen 1,000 MG/100 ML PIGGYBACK 16.7 MG IV (03:19)
[2023-09-20 03:41] VITALS: BP 117/63; PULSE 53; RESP 18; TEMP 36.6; O2SAT 94
[2023-09-20 06:28] LABS: MANUAL DIFF FLAG NO
[2023-09-20 06:49] LABS: Anion Gap 14 (12-20); Blood Urea Nitrogen 12 mg/dL (9-16); Calcium 9.6 mg/dL (8.4-10.2); Carbon Dioxide 25 mmol/L (22-29); Chloride 104 mmol/L (96-108); Creatinine Clr Calc Pharmacy 169.3; Estimated Glomerular Filt Rate > 60; Glucose Random 103 mg/dL (60-115); Potassium 4.3 mmol/L (3.3-5.1); Sodium 139 mmol/L (135-145)
[2023-09-20 07:04] LABS: Basophils Percent Auto 0.1 % (0-2); Hematocrit 37.3 % (42.0-52.0); Hemoglobin 12.1 g/dl (14.0-18.0); Imm Gran Abs Auto 0.04 X10*3/uL (0.00-0.03); Imm Gran Pct Auto 0.4 % (0.0-0.4); Lymphocytes Absolute Auto 1.5 X10*3/uL (1.2-4.9); Lymphocytes Percent Auto 14.1 % (20-40); Mean Corpuscular HGB Conc 32.4 g/dl (31.0-36.0); Mean Corpuscular Hemoglobin 27.1 pg (27.0-33.0); Mean Corpuscular Volume 83.6 fL (80.0-98.0); Mean Platelet Volume 10.1 fL (9.4-12.4); Monocytes Absolute Auto 0.6 X10*3/uL (0.1-1.2); Monocytes Percent Auto 5.9 % (2-11); Neutrophils Absolute Auto 8.2 x10*3/uL (2.0-8.3); Neutrophils Percent Auto 79.5 % (45-73); Platelet Count 235 X10*3/uL (160-400); Red Blood Count 4.46 X10*6/uL (4.60-5.80); Red Cell Distribution Width 13.9 % (11.0-16.0); White Blood Count 10.3 X10*3/uL (4.8-10.8)
[2023-09-20 07:17] VITALS: BP 127/77; PULSE 65; RESP 14; TEMP 36.3; O2SAT 98
--- NOTE | 2023-09-20 08:52 | HO.POSTANES ---
Post Anesthesia Evaluation Post Anesthesia Evaluation Date of Service: 09/20/23 Vital Signs: Vital Signs Temp Pulse Resp BP Pulse Ox O2 Del Method 09/20/23 07:17 97.4 F 65 14 127/77 98 Room Air 09/20/23 03:41 97.9 F 53 18 117/63 94 Room Air 09/19/23 23:19 97.7 F 53 18 125/68 95 Room Air Anesthesia: General Endotracheal-GETA Mental Status: Awake Pain Control: Satisfactory Nausea/Vomiting: None Hydration: Adequate Anesthesia-Related Issues: No Anes. Related Issues
--- NOTE | 2023-09-20 09:24 | MHC.CM.PN ---
Patient is discharged to home today self care. he has arranged for transportation home.
== END 2023-09-20 09:21 | disposition home or self-care (01) | DRG 403 ==
LOC: HO.SSSA 07:43 → HO.S3 10:54
PROVIDERS: Physician Assistant; Admitting Provider Surgery; PCP Nurse Practitioner; Visit Provider Surgery
PROC: 0DB64Z3 Excision of Stomach, Percutaneous Endoscopic Approach, Vertical (ICD-10-PCS; CPT 43845; principal; 2023-09-19 07:30)
DX: E66.01 Morbid (severe) obesity due to excess calories (principal); K74.00 Hepatic fibrosis, unspecified; Z68.38 Body mass index [BMI] 38.0-38.9, adult; Q43.3 Congenital malformations of intestinal fixation; F11.20 Opioid dependence, uncomplicated; F41.9 Anxiety disorder, unspecified; F32.A Depression, unspecified; Z87.891 Personal history of nicotine dependence; Z79.899 Other long term (current) drug therapy
CPT/HCPCS: 36415; 80048; 80053; 80061; 83036; 83525; 84443; 85014; 85018; 85025; 85610; 85730; 86140; 86850; 86900; 86901; 88304; 88305; 88307; 88342; A4649; C9088; C9145; J0131; J0690; J1100; J1170; J2250; J2405; J2704; J2795; J3010; J7120

== ENCOUNTER → 2023-09-19 06:29 | Outpatient (BNV) | payer MEDICAID, SELFPAY | PROVIDERS: Admitting Provider Surgery; PCP Nurse Practitioner; Visit Provider Surgery | DX: E66.9 Obesity, unspecified (principal); Z68.38 Body mass index [BMI] 38.0-38.9, adult; K66.0 Peritoneal adhesions (postprocedural) (postinfection) | CPT/HCPCS: 43659; 43775; 99024 ==

== ENCOUNTER 2023-09-26 10:03 | Outpatient (AMB) | payer MEDICAID, SELFPAY ==
--- NOTE | 2023-09-26 11:00 | A.OFFVIS_ITS ---
Intake VS Expanded 09/26/23 11:08 BP 126/58 L Blood Pressure Location Rt brachial Blood Pressure Position Sitting Pulse 69 Pulse Source Pulse Oximeter Temp 97.8 F Temperature Source Temporal Artery Scan Pulse Oximetry 95 Oxygen Delivery Method Room Air Height 5 ft 8 in Weight 239 lb 9.6 oz BMI 36.4 Body Fat % 34.0 Body Fat Mass 81.4 Fat Free Mass 158.0 Visceral Fat Rating 17.0 Body Water % 47.5 Body Water Mass 113.8 Muscle Mass/Score 150.4 Basal Metabolic Rate/Score 2,167 Intake Visit Reasons: (OV) PO LSG 09/19/23 Allergies sulfamethoxazole [From BACTRIM] Allergy (Intermediate, Verified 09/26/23 11:02) HIVES trimethoprim [From BACTRIM] Allergy (Intermediate, Verified 09/26/23 11:02) HIVES HPI HPI Comments History of Present Illness Details 38-year-old male returns to the office t yenny in follow-up. He is 7 days post sleeve gastrectomy performed on 09/19/2023. He states that water got underneath the Tegaderm bandages and he removed them. He additionally removed the Steri-Strips and placed Band-Aids over his incisions. He is tolerating 3 celebrate 4 in 1 shakes with 1 scoop each and approximately 40 oz of fluid daily. He has had a positive bowel movement. He does report some gas and bloating although admitted to drinking the shakes over approximately 1 hour instead of over 2 hours. FORMERLY [facility], 1928–1983 Medical History (Updated 09/19/23 @ 10:53 by Mc Nieto MD) Anxiety Depression History of opioid abuse Morbid obesity History of DVT (deep vein thrombosis) Surgical History (Updated 09/26/23 @ 11:03 by Eloisa Johnson CMA) S/P laparoscopic sleeve gastrectomy Family History Maternal Grandfather Myocardial infarction Family/Other Leukemia Social History (Updated 09/26/23 @ 11:03 by Eloisa Johnson CMA) Household Members: Significant Other Housing: Apartment Are you a primary care center manager to a significant other at home: No Do you presently have visiting nurse or other home services: No Alcohol intake: never Patient Tobacco Use Status: Former Tobacco user Quit Date: 09/2022 Tobacco use type: Cigarette Cigarette Packs Per Day: 1 Years Smoked: 20 Second Hand Smoke Exposure: No Substance Use Type: Marijuana service: No Current occupational status: employed Physical Exam Vital Signs: Last Vital Signs Temp 97.8 F 09/26/23 11:08 Pulse 69 09/26/23 11:08 BP 126/58 L 09/26/23 11:08 Pulse Ox 95 09/26/23 11:08 Oxygen Delivery Method Room Air 09/26/23 11:08 BMI result Body Mass Index 36.4 GI Inspection: Yes incision (Clean, dry, intact.) Assessment & Plan Assessment & Plan (1) S/P laparoscopic sleeve gastrectomy: Code(s): Z98.84 - Bariatric surgery status Plan: POD 7 s/p LSG on 09/19/2023y Dr Nieto Weight loss prior to surgery was 22.6 pounds or 8.5 % TBWL. Original weight on 03/22/2023 was 264.8 pounds and op weight was 242.2 pounds. Be sure to text Dr Nieto exactly 1 week after surgery your weight from your home scale so he can adjust your meal plan. Continue meal plan until f/u w Lolly in 2 weeks May shower, no submersion in bath for another week Continue abdominal binder with activity and exercise for the next 2 weeks. Exercise prior to surgery was treadmill, may resume No abdominal exercises for 6 weeks post operatively Will be emailed link to post op video for review Reminded of the pace of drinking, 2 mL per minute, 1 oz/15 min. Coding Level of Care Code Global (15465) Diagnoses S/P laparoscopic sleeve gastrectomy Z98.84
[2023-09-26 11:08] VITALS: BP 126/58; PULSE 69; TEMP 36.6; O2SAT 95; BMI 36.4
== END 2023-09-26 11:43 | disposition home or self-care (01) ==
PROVIDERS: PCP Nurse Practitioner; Visit Provider Physician Assistant Surgical
DX: E66.9 Obesity, unspecified (principal); Z68.36 Body mass index [BMI] 36.0-36.9, adult; Z90.3 Acquired absence of stomach [part of]; Z98.84 Bariatric surgery status
CPT/HCPCS: 99024

== ENCOUNTER → 2023-09-26 10:03 | Outpatient (BNVA) | payer MEDICAID, SELFPAY | PROVIDERS: PCP Nurse Practitioner; Visit Provider Physician Assistant Surgical | DX: Z98.84 Bariatric surgery status (principal) | CPT/HCPCS: 99212 ==

== ENCOUNTER 2023-10-12 11:55 | Outpatient (AMB) | payer MEDICAID, SELFPAY ==
--- NOTE | 2023-10-12 11:55 | MHC.OFFVISWM ---
Intake VS Expanded 10/12/23 12:02 BP 134/78 Blood Pressure Location Rt brachial Blood Pressure Position Sitting Pulse 80 Pulse Source Pulse Oximeter Temp 97.6 F Temperature Source Temporal Artery Scan Pulse Oximetry 95 Oxygen Delivery Method Room Air Height 5 ft 8 in Weight 288 lb 12.8 oz BMI 43.9 Body Fat % 33.3 Body Fat Mass 76.0 Fat Free Mass 152.6 Visceral Fat Rating 15.0 Body Water % 47.5 Body Water Mass 108.6 Muscle Mass/Score 145.0 Basal Metabolic Rate/Score 2,083 Intake Visit Reasons: (OV) PO LSG 09/19/23 Allergies sulfamethoxazole [From BACTRIM] Allergy (Intermediate, Verified 10/12/23 11:59) HIVES trimethoprim [From BACTRIM] Allergy (Intermediate, Verified 10/12/23 11:59) HIVES Medication List - Last Reconciled 10/12/23 by IRINEO Howe methadone 110 mg PO DAILY ondansetron 4 mg PO Q12H pantoprazole 40 mg PO DAILY sucralfate 10 mL PO BID HPI HPI Comments History of Present Illness Details This?is a?38?yo male who is s/p LSG 3 weeks ago. 10lb weight loss since last OV 2 weeks ago.? No complaints of nausea, emesis, abdominal pain, or constipation. Having some heartburn, busy at work. Thinks it might be due to drinking/eating quickly since he does not have much time at work. Sometimes difficulty getting all the protein in. Was given a leave from work. Present meal plan includes: 2 shakes 8-10am and 11am-1pm - Celebrate 4:1 2 scoops in 8oz unsweetened AM Celebrate Rebuild 2 scoops 2-4pm bar 5-8pm broken into 6 pieces Exercise routine includes: 200 calories on treadmill each day [facility] Medical History (Updated 10/05/23 @ 05:33 by Background Daemon) Anxiety Depression History of opioid abuse Morbid obesity History of DVT (deep vein thrombosis) Surgical History (Updated 10/05/23 @ 05:33 by Background Daemon) S/P laparoscopic sleeve gastrectomy Family History Maternal Grandfather Myocardial infarction Family/Other Leukemia Social History (Updated 09/26/23 @ 11:03 by Eloisa Johnson CMA) Household Members: Significant Other Housing: Apartment Are you a primary home care associate to a significant other at home: No Do you presently have visiting nurse or other home services: No Alcohol intake: never Patient Tobacco Use Status: Former Tobacco user Quit Date: 09/2022 Tobacco use type: Cigarette Cigarette Packs Per Day: 1 Years Smoked: 20 Second Hand Smoke Exposure: No Substance Use Type: Marijuana service: No Current occupational status: employed Assessment & Plan Assessment & Plan (1) S/P laparoscopic sleeve gastrectomy: Code(s): Z98.84 - Bariatric surgery status (2) Obesity: Code(s): E66.9 - Obesity, unspecified Qualifiers: Body mass index: BMI 38.0-38.9 Obesity classification: adult class 2 (BMI 35 - 39.9) Obesity type: due to excess calories Serious obesity comorbidity presence: with serious comorbidity Qualified Code(s): E66.01 - Morbid (severe) obesity due to excess calories; Z68.38 - Body mass index [BMI] 38.0-38.9, adult Plan Pt requests leave of absence paperwork for his job. I was not able to review at the time of appt as he arrived 25 min after appt time. Will keep meal plan the same for now, pt to text Dr. Dorys dash (did not text Monday) with weight update. RTC 2 weeks. Patient is morbidly obese and is not considered stable at this time. I spent a total of 30 minutes reviewing/updating records, examining the patient and counseling the patient on weight management as detailed above. Coding Level of Care Code Est Pt Level 4 (43524) Diagnoses S/P laparoscopic sleeve gastrectomy Z98.84 Class 2 severe obesity due to excess calories with serious comorbidity and body mass index (BMI) of 38.0 to 38.9 in adult E66.01; Z68.38 Body mass index: BMI 38.0-38.9 Obesity classification: adult class 2 (BMI 35 - 39.9) Obesity type: due to excess calories Serious obesity comorbidity presence: with serious comorbidity
[2023-10-12 12:02] VITALS: BP 134/78; PULSE 80; TEMP 36.4; O2SAT 95; BMI 43.9
== END 2023-10-12 12:09 | disposition home or self-care (01) ==
PROVIDERS: PCP Nurse Practitioner; Visit Provider Physician Assistant Surgical
DX: E66.09 Other obesity due to excess calories (principal); Z68.38 Body mass index [BMI] 38.0-38.9, adult; Z90.3 Acquired absence of stomach [part of]; Z98.84 Bariatric surgery status
CPT/HCPCS: 99024

== ENCOUNTER → 2023-10-12 11:55 | Outpatient (BNVA) | payer MEDICAID, SELFPAY | PROVIDERS: PCP Nurse Practitioner; Visit Provider Physician Assistant Surgical | DX: E66.01 Morbid (severe) obesity due to excess calories (principal); Z68.41 Body mass index [BMI] 40.0-44.9, adult; Z90.3 Acquired absence of stomach [part of] | CPT/HCPCS: 99212 ==